=== PATIENT | female | born 1965 | race African-American/Black ===

== ENCOUNTER 2019-05-21 14:57 | Inpatient (IN) | payer OTHER ==
--- NOTE | 2019-05-21 15:04 | PDOC ---
Rapid Medical Evaluation Chief Complaint: Chest Pain Time Seen by Provider: 05/21/19 14:59 Medical Evaluation: Allergies Allergy/AdvReac Type Severity Reaction Status Date / Time haloperidol [From Haldol] Allergy Verified 07/15/14 15:00 haloperidol lactate Allergy Verified 07/15/14 15:00 [From Haldol] shellfish derived Allergy Verified 07/15/14 15:00 05/21/19 15:00 Pt c/o: prod cough x 4 months, post tussis vomiting, arthalgia, headache, UT last month, no stents, hx copd, dyslipidemia Pt on brief exam: vss, lcta, speaking full sentences, no vomiting Pt ordered for: ekg, labs, cxr Pt to proceed to the ED Discharge Disposition - Diagnosis Cough, Acute respiratory failure, Asthma - Discharge Dispostion Condition at time of disposition: Stable - Referrals - Patient Instructions - Post Discharge Activity
--- NOTE | 2019-05-21 15:24 | PDOC ---
History of Present Illness - General Chief Complaint: Chest Pain Stated Complaint: CHEST PAIN, ABD PAIN, COUGH, VOMITING, BACK PAIN Time Seen by Provider: 05/21/19 14:59 Past History - Past Medical History Allergies/Adverse Reactions: Allergies Allergy/AdvReac Type Severity Reaction Status Date / Time fluoxetine [From Prozac] Allergy Verified 05/22/19 04:46 haloperidol [From Haldol] Allergy Verified 05/21/19 15:03 haloperidol lactate Allergy Verified 05/21/19 15:03 [From Haldol] sertraline [From Zoloft] Allergy Verified 05/22/19 04:46 shellfish derived Allergy Verified 05/21/19 15:03 Home Medications: Ambulatory Orders Albuterol 2.5/Ipratropium 0.5 1 neb PO QID 05/22/19 Amlodipine Besylate [Norvasc -] 10 mg PO DAILY 05/22/19 Aspirin [Aspirin EC] 81 mg PO DAILY 05/22/19 Atorvastatin Ca [Lipitor] 80 mg PO DAILY 05/22/19 Hydrochlorothiazide 25 mg PO DAILY 05/22/19 Lisinopril 5 mg PO DAILY 05/22/19 COPD: Yes Diabetes: Yes (BORDER LINE) HTN: Yes Psychiatric Problems: Yes (DEPRSSION,BIPOLAR) - Psycho Social/Smoking Cessation Hx Smoking History: Former smoker Have you smoked in the past 12 months: No Number of Cigarettes Smoked Daily: 10 If you are a former smoker, when did you quit?: 01/2019 Information on smoking cessation initiated: Yes 'Breaking Loose' booklet given: 07/15/14 Hx Alcohol Use: No Drug/Substance Use Hx: No Substance Use Type: None *Physical Exam - Vital Signs Last Vital Signs Temp Pulse Resp BP Pulse Ox 97.4 F L 83 19 99/60 96 05/21/19 14:59 05/21/19 14:59 05/21/19 14:59 05/21/19 14:59 05/21/19 14:59 05/21/19 16:00 PCP: Dr. Jv Villalpando but would like to establish care at [facility] 53 y/o female PMH HTN, HLD, asthma, COPD, chronic bronchitis, bipolar depression (no longer requiring tx), and s/p [place] 07 Apr 2019 (Seen at [facility] and transferred to [facility]) c/o SOB and CP. Symptoms started 4 months ago. She came in today because her SOB acutely worsened and she is now vomiting (post-tussive). Today she had x6 episodes of emesis, food containing, non-bloody, partly bilious. Her GB is intact; appendix intact. She denies fever, nausea, diarrhea. She has been constipated for 4 months; NL BM every other day and last was yesterday NL. She experienced a non-productive cough. Her had similar symptoms. She did recieve flu shot this year. Assoc. abdominal pain with cough. She recently quit smoking (4 months ago) and had a 28 y h/o 2 ppd. She has been using her rescue inhaler 4-6 times a day over the last 4 months. She endorses night time awakenings and cough. CP is located diffusely across the chest, pressure in character, non-radiating, made worse with cough, reproducible, 7/10. HEART score 6: highly suspicious history, normal EKG/old infarct, 53 y/o, risk factors (HTN, HLD, obesity, former smoker, prior [place]), trop NEG x1 [id number]. LMP 2 years ago. Attempting new diet and lost 5 lbs in last month. Describes night sweats; currently experiencing menopause. She describes urinary stress incontinence with this cough over last 4 months. She denies fever, nausea, diarrhea, recent travel. Fam hx no reported fam hx Surg hx: 1998 Soc hx: Smoking as above, never drugs, never etoh, low na/low fat diet, walks for exercise. 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 Live in home with , son, son's and grandchild REVIEW OF SYSTEMS CONSTITUTIONAL: Absent: fever, chills, diaphoresis, generalized weakness, malaise, loss of appetite, weight change HEENT: Absent: rhinorrhea, nasal congestion, throat pain, throat swelling, difficulty swallowing, mouth swelling, ear pain, eye pain, visual changes CARDIOVASCULAR: Absent: chest pain, syncope, palpitations, irregular heart rate, lightheadedness , peripheral edema RESPIRATORY: Absent: cough, shortness of breath, dyspnea with exertion, orthopnea, wheezing, stridor, hemoptysis GASTROINTESTINAL: Absent: abdominal pain, abdominal distension, nausea, vomiting, diarrhea, constipation, melena, hematochezia GENITOURINARY: Absent: dysuria, frequency, urgency, hesitancy, hematuria, flank pain, genital pain MUSCULOSKELETAL: Absent: myalgia, arthralgia, joint swelling, back pain, neck pain SKIN: Absent:rash, itching, pallor HEMATOLOGIC/IMMUNOLOGIC: Absent: easy bleeding, easy bruising, lymphadenopathy, frequent infections ENDOCRINE: Absent: unexplained weight gain, unexplained weight loss, heat intolerance, cold intolerance NEUROLOGIC: Absent: headache, focal weakness or paresthesias, dizziness, unsteady gait, seizure, mental status changes, bladder or bowel incontinence PSYCHIATRIC: Absent: anxiety, depression, suicidal or homicidal ideation, hallucinations. GENERAL: AOx3, in mild distress HEAD: NCAT EYES: EVELYN, EOMI, conjunctiva ?chronic discoloration ENT: Ears normal, nares patent, oropharynx clear without exudates. Moist mucous membranes. NECK: Normal range of motion, supple without lymphadenopathy, JVD, or masses. LUNGS: End expiratory wheezes in all lung casey ant+post. No accessory muscle use. HEART: RRR s1 s2 ABDOMEN: Obese, soft, BS present in all 4 quadrants, non-distended, no JVD, MUSCULOSKELETAL: No bony deformities or tenderness. No CVA tenderness. UPPER EXTREMITIES: 2+ pulses, warm, well-perfused. No cyanosis. No clubbing. No peripheral edema. LOWER EXTREMITIES: 2+ pulses, warm, well-perfused. No calf tenderness. No peripheral edema. NEUROLOGICAL: No focal deficits. Cranial nerves II-XII intact. Normal speech. Gait not appreciated. PSYCHIATRIC: Cooperative. Good eye contact. Appropriate mood and affect. SKIN: Dry, normal turgor, no rashes or lesions noted, normal capillary refill. # Acute respiratory failure 2/2 asthma exacerbation VS CHF exacerbation # R/o ACS - CBC, CMP, UA, U cx, CXR, EKG - Duonebs, albuterol PRN, 125 mg IV solumedrol - Lasix 20 mg IVP once Plan to admit given cardiac hx and respiratory status 05/21/19 16:52 Labs - WBC 11.4 - Eosinopilia. Pt reports plenty of roaches in home and prince allergy. CXR no acute pathology 05/21/19 17:[address] Gt Lucas for admission to [facility] Heart Score/ECG Review - History History: Highly suspicious - Electrocardiogram EKG: Non specific repolarization disturbance - Age Age: 45-65 - Risk Factors Risk Factors Heart Score: Yes Hx Hypercholesterolemia, Yes Hx Hypertension, Yes Smoking History, Yes Hx Obesity Based on the list above the patient has:: >/=3 risk factors or Hx atherosclerotic disease - Troponin Troponin: </= normal limit - Score Heart Score - Total: 6 ED Treatment Course - LABORATORY CBC & Chemistry Diagram: 05/24/19 07:19 05/24/19 07:19 Discharge - Discharge Information Problems reviewed: Yes Clinical Impression/Diagnosis: Cough Acute respiratory failure Qualifiers: Respiratory failure complication: unspecified whether with hypoxia or hypercapnia Qualified Code(s): J96.00 - Acute respiratory failure, unspecified whether with hypoxia or hypercapnia Asthma Qualifiers: Asthma severity: severe Asthma persistence: unspecified Asthma complication type: with acute exacerbation Qualified Code(s): J45.901 - Unspecified asthma with (acute) exacerbation Condition: Stable - Admission Yes - Follow up/Referral - Patient Discharge Instructions - Post Discharge Activity
[2019-05-21 15:46] LABS: BASO % 0.9 % (0-2.0); EOS % 22.1 % (0-4.5); HEMATOCRIT 37.5 % (32.4-45.2); LYMPH % 22.4 % (8-40); MCHC 32.2 g/dl (32.0-36.0); MEAN CELL VOLUME 80.7 fl (80-96); MEAN PLT VOLUME 7.1 fl (7.5-11.1); MONO % 6.3 % (3.8-10.2); NEUT % 48.3 % (42.8-82.8); PLATELET COUNT 402 K/MM3 (134-434); RBC 4.64 M/mm3 (3.60-5.2); RDW 15.7 % (11.6-15.6); WHITE BLOOD COUNT 11.4 K/mm3 (4.0-10.0)
[2019-05-21] MEDS ORDERED: ALBUTEROL SO4 2.5/IPRATROPIUM 0.5 INH SOL 3 ML VIAL.NEB. NEB ONE ×2 (15:59→16:13)
[2019-05-21 16:13] LABS: ALK PHOS 72 U/L (45-117); ANION GAP 6 MMOL/L (8-16); BILIRUBIN,TOTAL 0.3 mg/dL (0.2-1); BLOOD UREA NITROGEN 32.6 mg/dL (7-18); CALCIUM 9.7 mg/dL (8.5-10.1); CHLORIDE 105 mmol/L (98-107); CO2 29 mmol/L (21-32); CREATININE 1.5 mg/dL (0.55-1.3); GLUCOSE,RANDOM 104 mg/dL (74-106); POTASSIUM 4.2 mmol/L (3.5-5.1); SGOT/AST 20 U/L (15-37); SGPT/ALT 31 U/L (13-61); SODIUM 140 mmol/L (136-145); TOT PROT 6.6 g/dl (6.4-8.2)
[2019-05-21] MEDS ORDERED: methylPREDNISolone NA SUCC 125 MG/2 ML VIAL IVPUSH ONE (16:16)
[2019-05-21] MEDS ORDERED: ALBUTEROL SO4 HFA INHALER IH PRN (16:16)
[2019-05-21] MEDS: ALBUTEROL SO4 2.5/IPRATROPIUM 0.5 INH SOL 3 ML VIAL.NEB. NEB SCH ×4 (16:17→17:05)
--- NOTE | 2019-05-21 16:18 | PDOC ---
Attending Attestation - Resident Resident Name: Eulogio Jerry - ED Attending Attestation I have performed the following: I have examined & evaluated the patient, The case was reviewed & discussed with the resident, I agree w/resident's findings & plan - HPI HPI: 05/21/19 16:13 53-year-old female history of asthma, hypertension, AR last month status post cath at [facility] without stent intervention presents now with progressive cough for several months, worsening over the last few weeks and associated with chest pain. Positive orthopnea, no improvement despite 2 courses of prednisone. Lost to follow-up with cardiology, presents for evaluation. - Physicial Exam PE: 05/21/19 16:16 Vitals as noted, afebrile Obese female seated in stretcher speaking comfortably in no acute respiratory distress no JVD Heart is regular, but with frequent cough Lungs with slight crackles at both bases and expiratory wheezing to the mid lung field bilaterally Abdomen benign Trace pretibial edema bilaterally - Medical Decision Making 05/21/19 16:16 53-year-old female with history of asthma and recent AR presents with progressive shortness of breath and chest pain over the last few months, worsening over the last few weeks. Has been treated empirically for asthma exacerbation without relief, presentation could be consistent with asthma versus CHF. Labs, EKG, chest x-ray Nebulizers, IV diuresis We will need admission for echo and cardiac work-up Heart Score/ECG Review #1 ECG reviewed & interpreted by me at: 15:15 General ECG Interpretation: Sinus Rhythm, Normal Rate (80), Normal Intervals ( qtc 403), No acute ischemic changes
[2019-05-21] MEDS ORDERED: FUROSEMIDE 40 MG/4 ML INJECTABLE VIAL IVPUSH ONE (16:38)
[2019-05-21] MEDS ORDERED: FUROSEMIDE 40 MG/4 ML INJECTABLE VIAL ONE (17:24)
[2019-05-21] MEDS ORDERED: methylPREDNISolone NA SUCC 125 MG/2 ML VIAL ONE (17:24)
[2019-05-21 19:24] LABS: ARTERIAL BLD GAS O2 SATURATION 90.8 % (95-98); ARTERIAL BLOOD GAS BASE EXCESS 1.7 meq/l (-2-2); ARTERIAL BLOOD GAS PCO2 46.9 mmHg (35-45); ARTERIAL BLOOD GAS PO2 64.6 mmHg (80-100); ARTERIAL BLOOD GAS pH 7.38 (7.35-7.45)
[2019-05-21 19:25] LABS: ALLENS TEST POSITIVE
[2019-05-21] MEDS ORDERED: SODIUM CHLORIDE 0.9% 500 ML INFUS.BAG IV ONE (23:05)
--- NOTE | 2019-05-21 23:19 | HP ---
CHIEF COMPLAINT: SOB PCP: Dr Hernandez HISTORY OF PRESENT ILLNESS: 53 F h/o HTN, HLD, obesity, eczema, asthma, former smoker, former Etoh, ? bipolar disorder, presents with SOB on exertion a/w chest tightness and wheezing for the past 1-2 days. Patient endorses usually having her asthma "act up", until over the past few days started feeling worsening squeezing sensation in her chest a/w COVARRUBIAS. Denies sick contact, endorses having a cat at home was told in the past to get rid of her pet she never listened. Never intubated for asthma but gets frequent flare ups. Denies overt chest pain rather describes chest tightness and squeezing sensation, denies LOC/abdominal pain/vision changes. Endorses some episodes of vomiting after excessively coughing. ER course was notable for: (1) Duonebs, steroids (2) Trops/EKG neg. (3) Recent Travel: denies PAST MEDICAL HISTORY: as above PAST SURGICAL HISTORY: denies Social History: former Smoking: former (4 months ago) Alcohol: former (years ago) Drugs: denies Allergies haloperidol [From Haldol] Allergy (Verified 05/21/19 15:03) haloperidol lactate [From Haldol] Allergy (Verified 05/21/19 15:03) shellfish derived Allergy (Verified 05/21/19 15:03) HOME MEDICATIONS: Home Medications Medication Instructions Recorded NK [No Known Home Medication] 07/15/14 PHYSICAL EXAMINATION Vital Signs - 24 hr 05/21/19 14:59 Temperature 97.4 F L Pulse Rate 83 Respiratory 19 Rate Blood Pressure 99/60 O2 Sat by Pulse 96 Oximetry (%) GENERAL: Awake, alert, and fully oriented, in no acute distress. speaking in full sentences HEAD: Normal with no signs of trauma. EYES: Pupils equal, round and reactive to light, extraocular movements intact, sclera anicteric, conjunctiva clear. No lid lag. EARS, NOSE, THROAT: Ears normal, nares patent, oropharynx clear without exudates. Moist mucous membranes. NECK: Normal range of motion, supple without lymphadenopathy, JVD, or masses. LUNGS: scattered wheezes b/l, without signs of accessory M use HEART: Regular rate and rhythm, normal S1 and S2 without murmur, rub or gallop. ABDOMEN: Soft, nontender, obese, normoactive bowel sounds, no guarding, no rebound, no masses. No hepatomegaly or splenomegaly. MUSCULOSKELETAL: Normal range of motion at all joints. No bony deformities or tenderness. No CVA tenderness. UPPER EXTREMITIES: 2+ pulses, warm, well-perfused. No cyanosis. No clubbing. No peripheral edema. LOWER EXTREMITIES: 2+ pulses, warm, well-perfused. No calf tenderness. No peripheral edema. NEUROLOGICAL: Cranial nerves II-XII intact. Normal speech. Normal gait. PSYCHIATRIC: Cooperative. Good eye contact. Appropriate mood and affect. SKIN: Warm, dry, normal turgor, no rashes or lesions noted, normal capillary refill. Laboratory Results - last 24 hr 05/21/19 05/21/19 05/21/19 15:18 15:18 18:44 WBC 11.4 H RBC 4.64 Hgb 12.0 Hct 37.5 MCV 80.7 MCH 26.0 MCHC 32.2 RDW 15.7 H Plt Count 402 MPV 7.1 L Absolute Neuts (auto) 5.5 Neutrophils % 48.3 Neutrophils % (Manual) 35.9 L Band Neutrophils % 0.0 Lymphocytes % 22.4 Lymphocytes % (Manual) 51.3 H Monocytes % 6.3 Monocytes % (Manual) 2 L Eosinophils % 22.1 H* Eosinophils % (Manual) 9.4 H Basophils % 0.9 Basophils % (Manual) 0.8 Myelocytes % (Man) 0 Promyelocytes % (Man) 0 Blast Cells % (Manual) 0 Nucleated RBC % 0 Metamyelocytes 1 Anticoagulation Therapy Puncture Site ABG pH ABG pCO2 at Pt Temp ABG pO2 at Pt Temp ABG HCO3 ABG O2 Sat (Measured) ABG O2 Content ABG Base Excess David Test Carboxyhemoglobin Methemoglobin O2 Delivery Device Oxygen Flow Rate Vent Mode Vent Rate Mechanical Rate Pressure Support Vent Sodium 140 Potassium 4.2 Chloride 105 Carbon Dioxide 29 Anion Gap 6 L BUN 32.6 H Creatinine 1.5 H Est GFR (CKD-EPI)AfAm 45.62 Est GFR (CKD-EPI)NonAf 39.36 Random Glucose 104 Calcium 9.7 Total Bilirubin 0.3 AST 20 ALT 31 Alkaline Phosphatase 72 Creatine Kinase 85 Troponin I < 0.02 < 0.02 Total Protein 6.6 Albumin 3.0 L 05/21/19 19:01 WBC RBC Hgb Hct MCV MCH MCHC RDW Plt Count MPV Absolute Neuts (auto) Neutrophils % Neutrophils % (Manual) Band Neutrophils % Lymphocytes % Lymphocytes % (Manual) Monocytes % Monocytes % (Manual) Eosinophils % Eosinophils % (Manual) Basophils % Basophils % (Manual) Myelocytes % (Man) Promyelocytes % (Man) Blast Cells % (Manual) Nucleated RBC % Metamyelocytes Anticoagulation Therapy No Result Required. Puncture Site Right radial ABG pH 7.38 ABG pCO2 at Pt Temp 46.9 H ABG pO2 at Pt Temp 64.6 L ABG HCO3 26.9 ABG O2 Sat (Measured) 90.8 L ABG O2 Content 16.0 ABG Base Excess 1.7 David Test Positive Carboxyhemoglobin 1.0 Methemoglobin 1.2 O2 Delivery Device No Result Required. Oxygen Flow Rate No Result Required. Vent Mode No Result Required. Vent Rate No Result Required. Mechanical Rate No Result Required. Pressure Support Vent No Result Required. Sodium Potassium Chloride Carbon Dioxide Anion Gap BUN Creatinine Est GFR (CKD-EPI)AfAm Est GFR (CKD-EPI)NonAf Random Glucose Calcium Total Bilirubin AST ALT Alkaline Phosphatase Creatine Kinase Troponin I Total Protein Albumin ASSESSMENT/PLAN: 53 F h/o eczemia, asthma, obesity, HTN, HLD, bipolar disorder presents with COVARRUBIAS , wheezing and chest tightness, pt. admitted for ABISAI, no clinical signs for ACS. SOB 2/2 ABISAI, with hypereosinophilia Singulair, duonebs, IV steroids, Claritin (for itching) Will need repeat of PFTs as outpatient Trops negx2, EKG no signs of acute ischemia, obtain Echo Pulmonary consult: Dr Saab HTN hold BP meds in view of low BP HLD send lipid panel hold statin in view of vomiting Obesity counseled on diet/exercise and weight loss Bipolar disorder not in acute exacerbation no SI/HI/AH/VH, stable mood Med-surg DVT ppx: Lovenox SC Visit type - Emergency Visit Emergency Visit: Yes ED Registration Date: 05/21/19 Care time: The patient presented to the Emergency Department on the above date and was hospitalized for further evaluation of their emergent condition. - New Patient This patient is new to me today: Yes Date on this admission: 05/21/19 - Critical Care Critical Care patient: No
[2019-05-21] MEDS ORDERED: methylPREDNISolone NA SUCC 40 MG/1 ML VIAL ONE (23:26)
[2019-05-21] MEDS: methylPREDNISolone NA SUCC 40 MG/1 ML VIAL IVPUSH SCH (23:39)
[2019-05-21] MEDS: ALBUTEROL SO4 2.5/IPRATROPIUM 0.5 INH SOL 3 ML VIAL.NEB. NEB PRN (23:46)
[2019-05-22 00:14] LABS: COCAINE, UR NEGATIVE ng/ml (CUTOFF=300); METHADONE, UR NEGATIVE ng/ml (CUTOFF=300); OPIATES, URI NEGATIVE ng/ml (CUTOFF=300); PHENCYCLIDINE,URINE NEGATIVE ng/ml (CUTOFF=25); URINE AMPHETAMINES NEGATIVE ng/ml (CUTOFF=500); URINE BARBITURATES NEGATIVE ng/ml (CUTOFF=200); URINE BENZODIAZEPINES NEGATIVE ng/ml (CUTOFF=200)
[2019-05-22] MEDS: methylPREDNISolone NA SUCC 40 MG/1 ML VIAL IVPUSH SCH ×4 (03:52→22:44)
[2019-05-22] MEDS ORDERED: PNEUMOC 13-VAL CONJ-DIP CRM/PF 0.5 ML DISP.SYRIN IM ONE (04:29)
[2019-05-22] MEDS: ALBUTEROL SO4 2.5/IPRATROPIUM 0.5 INH SOL 3 ML VIAL.NEB. NEB PRN (05:48)
[2019-05-22 08:15] LABS: BASO % 0.3 % (0-2.0); EOS % 0.1 % (0-4.5); HEMOGLOBIN 11.8 GM/dL (10.7-15.3); MCH 26.2 pg (25.7-33.7); MCHC 32.7 g/dl (32.0-36.0); MEAN CELL VOLUME 80.1 fl (80-96); MEAN PLT VOLUME 7.5 fl (7.5-11.1); MONO % 1.3 % (3.8-10.2); NEUT % 90.3 % (42.8-82.8); PLATELET COUNT 360 K/MM3 (134-434); RDW 16.1 % (11.6-15.6); WHITE BLOOD COUNT 7.8 K/mm3 (4.0-10.0)
[2019-05-22 08:36] LABS: CHOLESTEROL 164 mg/dL (50-200); HDL CHOLESTEROL 62 mg/dL (40-60); LDL CHOLESTEROL (ONLY SJRH) 94 mg/dL (5-100); TRIGLYCERIDES 52 mg/dL (0-150)
[2019-05-22 08:47] LABS: BILIRUBIN,TOTAL 0.4 mg/dL (0.2-1); BLOOD UREA NITROGEN 38.2 mg/dL (7-18); CALCIUM 9.3 mg/dL (8.5-10.1); CREATININE 1.6 mg/dL (0.55-1.3); POTASSIUM 4.9 mmol/L (3.5-5.1); TOT PROT 6.5 g/dl (6.4-8.2)
[2019-05-22] MEDS: LORATADINE 10 MG TABLET PO SCH (09:33)
[2019-05-22] MEDS: ENOXAPARIN NA (PORCINE) 40 MG/0.4 ML DISP.SYRIN SQ SCH (09:33)
[2019-05-22] MEDS ORDERED: PNEUMOCOCCAL 23 VACCINE 0.5 ML VIAL IM ONE (10:00)
--- NOTE | 2019-05-22 12:52 | ECHO ---
Version: 1 Name: REGINO VAZ Exam: Adult Echocardiogram Study Date: 05/22/2019, 8:50 AM Age: 53 Years MMode/2D Measurements & Calculations IVSd: 0.92 cm LVIDs: 2.45 cm LVIDd: 3.9 cm LVPWd: 1.21 cm ACS: 2.01 cm Ao root diam: 2.6 cm LVOT diam: 1.92 cm LA dimension: 3.2 cm Doppler Measurements & Calculations MV E max matt: 105.1 cm/sec Med E/e': 12.3 MV A max matt: 107.6 cm/sec Med Peak E' Matt: 8.6 cm/sec MV E/A: 0.98 Lat E/e': 9.7 Lat Peak E' Matt: 10.8 cm/sec Ao max P.6 mmHg ERASTO(I,D): 2.5 cm Ao mean P.6 mmHg LV V1 mean: 91.8 cm/sec Ao V2 max: 177.8 cm/sec LV V1 mean P.9 mmHg Procedure A limited two-dimensional transthoracic echocardiogram was performed (2D). Left Ventricle The left ventricle is normal in size. The left ventricle is hyperdynamic. Left Ventricular Filling p attern is normal for age. Right Ventricle The right ventricle is normal in size and function. Atria Normal left and right atrial size and function. Mitral Valve The mitral valve is normal in structure and function. There is no mitral valve stenosis. Tricuspid Valve The tricuspid valve is normal in structure and function. There was insufficient TR detected to calcu late RV systolic pressure. Aortic Valve The aortic valve is normal in structure and function. Pulmonic Valve The pulmonic valve is normal in structure and function. Great Vessels The aortic root is normal size. Pericardium/Pleura There is no pericardial effusion. Summary Statements A limited two-dimensional transthoracic echocardiogram was performed (2D). The left ventricle is hyperdynamic. Left Ventricular Filling pattern is normal for age. The right ventricle is normal in size and function. Terrance Call 05/22/2019, 12:52 PM Ordering Physician: Gulshan Escobar Performed By: Regine Garcia
--- NOTE | 2019-05-22 13:12 | PN ---
Progress Note (short form) - Note Progress Note: PULMONARY CONSULTATION DICTATED 05/22/19 IMP DYSPNEA ACUTE ASTHMA EXACERBATION COUGH ASHD S/P AK HTN HLD CALI TOBACCO ABUSE EOSINOPHILIA JUAN ON CPAP PLAN IV STEROIDS INHALED BRONCHODILATORS O2 PEAK FLOW MONITOR CBC,EOSINOPHIL CT,LYTES,RENAL FUNCTION SERUM IGE LEVEL OUTPATIENT WHEN OFF STEROIDS OUTPATIENT PFTS CPAP AT NIGHT CHEST CT SMOKING CESSATION COUNSELED DR ASHRAF Problem List - Problems (1) Eosinophil count raised Code(s): D72.1 - EOSINOPHILIA (2) Asthma Code(s): J45.909 - UNSPECIFIED ASTHMA, UNCOMPLICATED Qualifiers: Asthma severity: severe Asthma persistence: unspecified Asthma complication type: with acute exacerbation Qualified Code(s): J45.901 - Unspecified asthma with (acute) exacerbation (3) Cough Code(s): R05 - COUGH (4) ASHD (arteriosclerotic heart disease) Code(s): I25.10 - ATHSCL HEART DISEASE OF [place] CORONARY ARTERY W/O ANG PCTRS (5) HTN (hypertension) Code(s): I10 - ESSENTIAL (PRIMARY) HYPERTENSION (6) Asthma exacerbation Code(s): J45.901 - UNSPECIFIED ASTHMA WITH (ACUTE) EXACERBATION (7) Sleep apnea Code(s): G47.30 - SLEEP APNEA, UNSPECIFIED
[2019-05-22 13:30] LABS: PLATELET ESTIMATE ADEQUATE
--- NOTE | 2019-05-22 14:06 | CONS ---
PULMONARY CONSULTATION DATE OF CONSULTATION: 05/22/2019 REFERRING PHYSICIAN: Eron Escobar MD HISTORY OF PRESENT ILLNESS: Patient is a 53-year-old, female with past medical history of obesity; obstructive sleep apnea, on CPAP; hypertension; hyperlipidemia; long-standing history of tobacco use of approximately 2 packs per day, since age 21, stopped about 1 month ago; ASHD, status post MS one month ago, hospitalized at [facility], no stent placed; former history of EtOH; asthma for approximately 4 years; admitted to [facility] with complaint of increasing chest congestion, shortness of breath, bronchospasm, and orthopnea. Patient states she was well, until a month ago, when she started developing cough productive of clear sputum. Denied any chest pain. She has been treated intermittently with prednisone and bronchodilator, which initially offered some improvement and then her symptoms recur. The past couple days, she started developing increasing respiratory distress; at which time, she presented to the ER. In the ER, she was started on inhaled bronchodilators and steroids. Was transferred up to medical floor for further management. Of note is she was also found to have elevated eosinophil count of 22 on initial CBC. States that she has a history of multiple allergies to and HAY FEVER. There is no history of respiratory failure in the past or ventilatory support. She denies any history of DVT or PE in the past. There is no history of recent travel. She denies any hemoptysis, chest pains or palpitations. She claims to have a cough productive of clear sputum. PAST MEDICAL HISTORY: Again includes asthma for approximately 4 years; obstructive sleep apnea; hypertension; hyperlipidemia; ASHD, status post MS one month ago. 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 History of tobacco of 2 packs per day since age 21; quit 1 month ago. REVIEW OF SYSTEMS: Positive shortness of breath. Positive orthopnea. No PND. Positive cough. Positive bronchospasm. No chest pain. No palpitations. No lower extremity edema. CURRENT MEDICATIONS: Include Solu-Medrol of 60 q.6, Lovenox, albuterol, DuoNeb, Singulair, and Claritin. PHYSICAL EXAMINATION: General: Patient is an obese female, awake, alert, in no acute distress. Vital Signs: She is afebrile, her blood pressure is 138/86, respiratory rate is 18, O2 saturation is 91% on room air. HEENT: Exam is normocephalic, atraumatic. Neck: Supple. Heart: reg,S1 and S2. Chest: Scattered bilateral wheezes. Abdomen: Soft. Bowel sounds are positive. Extremities: No cyanosis or edema. Echo showed normal left ventricular function, right ventricle normal in size and function. LABORATORIES: WBC is 11.4, hemoglobin 12, hematocrit 37.5 with a platelet count of 402,000. Repeat today WBC is 7.8, hemoglobin 11.8, hematocrit 36.0, platelet count of 360. Eosinophils today are 0.1; on May 21.1. Chemistries: BUN 38, creatinine 1.6. Chest x-ray: No infiltrates and no effusions. IMPRESSION: 1. Dyspnea, secondary to acute asthma and chronic obstructive pulmonary disease exacerbation. 2. Cough, secondary to above. 3. Atherosclerotic heart disease. Status post myocardial infarction one month ago. 4. Hypertension. 5. Hyperlipidemia. 6. Likely acute kidney injury. 7. History of tobacco use. 8. Eosinophilia. 9. Obstructive sleep apnea. On CPAP. PLAN: IV steroids. Inhaled bronchodilators. Supplemental O2. Monitor peak flow. Monitor CBC, eosinophil count. Monitor electrolytes, renal function. Obtain serum IgE level, as well as followup eosinophil level as an outpatient when off steroids. Outpatient PFTs. CPAP at night. Also, chest CT, due to long-standing history of tobacco use. ERON ASHRAF M.D. [id number] MTDD
[2019-05-22] MEDS ORDERED: PANTOPRAZOLE 40 MG TABLET PO ONE (14:55)
--- NOTE | 2019-05-22 15:01 | PN ---
Progress Note, Physician Chief Complaint: sob and coughing History of Present Illness: 53 year old obese female with PMH HTN, HLD, obesity, eczema, asthma, ? bipolar disorder presents to the ED with sob/coughing. she is evalauted by pulmonology, nephrology. - Current Medication List Current Medications: Active Medications Albuterol Sulfate (Ventolin Hfa Inhaler -) 2 puff IH Q6H PRN PRN Reason: SHORT OF BREATH/WHEEZING Albuterol/Ipratropium (Duoneb -) 1 amp NEB RQ4H [facility] Amlodipine Besylate (Norvasc -) 10 mg PO DAILY [facility] Aspirin (Ecotrin -) 81 mg PO DAILY [facility] Atorvastatin Calcium (Lipitor -) 80 mg PO DAILY [facility] Enoxaparin Sodium (Lovenox -) 40 mg SQ DAILY [facility] Last Admin: 05/22/19 09:33 Dose: 40 mg Hydrochlorothiazide (Hctz -) 25 mg PO DAILY [facility] Lisinopril (Prinivil) 5 mg PO DAILY [facility] Loratadine (Claritin -) 10 mg PO DAILY [facility] Last Admin: 05/22/19 09:33 Dose: 10 mg Methylprednisolone Sodium Succinate (Solu-Medrol -) 60 mg IVPUSH Q6H-IV [facility] Last Admin: 05/22/19 09:33 Dose: 60 mg Montelukast Sodium (Singulair -) 10 mg PO HS [facility] Pantoprazole Sodium (Protonix -) 40 mg PO DAILY [facility] Pantoprazole Sodium (Protonix -) 40 mg PO ONCE ONE Stop: 05/22/19 14:56 - Objective Vital Signs: Vital Signs Temperature 97.3 F L 05/22/19 14:02 Pulse Rate 109 H 05/22/19 14:02 Respiratory Rate 18 05/22/19 14:02 Blood Pressure 137/87 05/22/19 14:02 O2 Sat by Pulse Oximetry (%) 91 L 05/22/19 08:15 Constitutional: Yes: Well Nourished, No Distress HENT: Yes: Atraumatic, Normocephalic Neck: Yes: Supple Cardiovascular: Yes: Regular Rate and Rhythm Respiratory: Yes: Wheezes Gastrointestinal: Yes: Normal Bowel Sounds, Soft Musculoskeletal: Yes: WNL, Other (pleuritic pain from coughing) Extremities: Yes: WNL Neurological: Yes: Alert, Oriented Labs: CBC, BMP 05/22/19 06:45 05/22/19 06:45 Problem List - Problems (1) Asthma exacerbation Assessment/Plan: pulmonary following IV steroids add ppi neb tx Code(s): J45.901 - UNSPECIFIED ASTHMA WITH (ACUTE) EXACERBATION (2) Obesity (BMI 30-39.9) Assessment/Plan: 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 Code(s): E66.9 - OBESITY, UNSPECIFIED (3) HLD (hyperlipidemia) Assessment/Plan: total chol 162 continue atorvastatin Code(s): E78.5 - HYPERLIPIDEMIA, UNSPECIFIED (4) CALI (acute kidney injury) Assessment/Plan: monitor bun/creat nephro eval Code(s): N17.9 - ACUTE KIDNEY FAILURE, UNSPECIFIED (5) Acute respiratory failure Assessment/Plan: does not have home oxygen monitor sats maintain >92% Code(s): J96.00 - ACUTE RESPIRATORY FAILURE, UNSP W HYPOXIA OR HYPERCAPNIA Qualifiers: Respiratory failure complication: unspecified whether with hypoxia or hypercapnia Qualified Code(s): J96.00 - Acute respiratory failure, unspecified whether with hypoxia or hypercapnia (6) HTN (hypertension) Assessment/Plan: restart home meds Code(s): I10 - ESSENTIAL (PRIMARY) HYPERTENSION
[2019-05-22] MEDS: ALBUTEROL SO4 2.5/IPRATROPIUM 0.5 INH SOL 3 ML VIAL.NEB. NEB SCH ×2 (16:30→20:08)
--- NOTE | 2019-05-22 16:45 | EKG ---
Test Reason : Blood Pressure : / mmHG Vent. Rate : 080 BPM Atrial Rate : 080 BPM P-R Int : 160 ms QRS Dur : 076 ms QT Int : 350 ms P-R-T Axes : 040 005 009 degrees QTc Int : 403 ms POOR DATA QUALITY, INTERPRETATION MAY BE ADVERSELY AFFECTED NORMAL SINUS RHYTHM SEPTAL INFARCT , AGE UNDETERMINED ABNORMAL ECG Confirmed by MD GABBIE, TRINH ([id number]) on 05/22/2019 4:44:46 PM Referred By: Confirmed By:TRINH CARTWRIGHT MD
--- NOTE | 2019-05-22 17:44 | CONSULT ---
Consult Consult Specialty:: Nephrology Reason for Consultation:: CALI - History of Present Illness Chief Complaint: shortness of breath History of Present Illness: Pt is a 53 year old female with pmhx of htn, hld, obesity, eczema, asthma, former smoker and bipolar who presents to the ER with shortness of breath. 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 She denies dysuria, She says that she had man "kidney infections" as a child. She denies hematuria. She denies lower ext edema. She denies nsaid use. - History Source History Provided By: Patient - Past Medical History Cardio/Vascular: Yes: HTN Pulmonary: Yes: Asthma ...LMP: 05/22/19 ...: No Psych: Yes: Bipolar - Alcohol/Substance Use Hx Alcohol Use: No - Smoking History Smoking history: Former smoker Have you smoked in the past 12 months: No Aproximately how many cigarettes per day: 10 If you are a former smoker, when did you quit?: 01/2019 Home Medications - Allergies Allergies/Adverse Reactions: Allergies Allergy/AdvReac Type Severity Reaction Status Date / Time fluoxetine [From Prozac] Allergy Verified 05/22/19 04:46 haloperidol [From Haldol] Allergy Verified 05/21/19 15:03 haloperidol lactate Allergy Verified 05/21/19 15:03 [From Haldol] sertraline [From Zoloft] Allergy Verified 05/22/19 04:46 shellfish derived Allergy Verified 05/21/19 15:03 - Home Medications Home Medications: Ambulatory Orders Albuterol 2.5/Ipratropium 0.5 1 neb PO QID 05/22/19 Amlodipine Besylate [Norvasc -] 10 mg PO DAILY 05/22/19 Aspirin [Aspirin EC] 81 mg PO DAILY 05/22/19 Atorvastatin Ca [Lipitor] 80 mg PO DAILY 05/22/19 Hydrochlorothiazide 25 mg PO DAILY 05/22/19 Lisinopril 5 mg PO DAILY 05/22/19 Family Medical History Family History: Denies Review of Systems - Review of Systems Constitutional: reports: No Symptoms Eyes: reports: No Symptoms HENT: reports: No Symptoms Neck: reports: No Symptoms Cardiovascular: denies: Edema Respiratory: reports: Cough, SOB on Exertion, Wheezing Gastrointestinal: reports: No Symptoms Genitourinary: reports: No Symptoms Musculoskeletal: reports: No Symptoms Integumentary: reports: No Symptoms Neurological: reports: No Symptoms Endocrine: reports: No Symptoms Hematology/Lymphatic: reports: No Symptoms Psychiatric: reports: No Symptoms Physical Exam Vital Signs: Vital Signs Temperature 97.3 F L 05/22/19 14:02 Pulse Rate 109 H 05/22/19 14:02 Respiratory Rate 18 05/22/19 14:02 Blood Pressure 137/87 05/22/19 14:02 O2 Sat by Pulse Oximetry (%) 91 L 05/22/19 08:15 Constitutional: Yes: Calm Eyes: Yes: Conjunctiva Clear Cardiovascular: Yes: S1, S2 Respiratory: Yes: Wheezes Gastrointestinal: Yes: Soft, Abdomen, Obese Renal/: Yes: WNL Musculoskeletal: Yes: WNL Edema: LLE: Trace, RLE: Trace Neurological: Yes: Oriented Psychiatric: Yes: Oriented Labs: CBC, BMP 05/22/19 06:45 05/22/19 06:45 Laboratory Tests 05/21/19 05/21/19 05/22/19 15:18 15:18 06:45 WBC 11.4 H 7.8 Hgb 12.0 11.8 Plt Count 402 360 Creatinine 1.5 H 05/22/19 06:45 WBC Hgb Plt Count Creatinine 1.6 H Imaging - Results Cat Scan: Report Reviewed Problem List - Problems (1) CALI (acute kidney injury) Code(s): N17.9 - ACUTE KIDNEY FAILURE, UNSPECIFIED (2) Asthma Code(s): J45.909 - UNSPECIFIED ASTHMA, UNCOMPLICATED Qualifiers: Asthma severity: severe Asthma persistence: unspecified Asthma complication type: with acute exacerbation Qualified Code(s): J45.901 - Unspecified asthma with (acute) exacerbation Assessment/Plan Current Medications Generic Name Dose Route Start Last Admin Trade Name Freq PRN Reason Stop Dose Admin Albuterol Sulfate 2 puff 05/21/19 16:16 Ventolin Hfa Inhaler - IH Q6H PRN SHORT OF BREATH/WHEEZING Albuterol/Ipratropium 1 amp 05/22/19 15:00 05/22/19 16:30 Duoneb - NEB Not Given RQ4H [facility] Amlodipine Besylate 10 mg 05/23/19 10:00 Norvasc - PO DAILY [facility] Aspirin 81 mg 05/23/19 10:00 Ecotrin - PO DAILY [facility] Atorvastatin Calcium 80 mg 05/23/19 10:00 Lipitor - PO DAILY [facility] Enoxaparin Sodium 40 mg 05/22/19 10:00 05/22/19 09:33 Lovenox - SQ 40 mg DAILY [facility] Administration Hydrochlorothiazide 25 mg 05/23/19 10:00 Hctz - PO DAILY [facility] Lisinopril 5 mg 05/23/19 10:00 Prinivil PO DAILY [facility] Loratadine 10 mg 05/22/19 10:00 05/22/19 09:33 Claritin - PO 10 mg DAILY [facility] Administration Methylprednisolone Sodium Succinate 60 mg 05/21/19 23:00 05/22/19 15:41 Solu-Medrol - IVPUSH 60 mg Q6H-IV [facility] Administration Montelukast Sodium 10 mg 05/22/19 22:00 Singulair - PO HS [facility] Pantoprazole Sodium 40 mg 05/23/19 10:00 Protonix - PO DAILY [facility] Impression 1. CKD vs CALI 2. htn 3. DM 4. asthma 5. dyspnea 6. 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
[2019-05-22 20:27] LABS: EPI CELLS 1.7 /HPF (0-5/HPF); HYALINE CASTS 1 /lpf (0-8); URINE APPEARANCE CLEAR; URINE BACTERIA 71.1 /hpf (NEGATIVE); URINE BILIRUBIN NEGATIVE (NEGATIVE); URINE COLOR YELLOW; URINE GLUCOSE (UA) NEGATIVE (NEGATIVE); URINE KETONE NEGATIVE (NEGATIVE); URINE LEUK ESTERASE NEGATIVE (NEGATIVE); URINE NITRITE NEGATIVE (NEGATIVE); URINE PROTEIN 2+ (NEGATIVE); URINE RBC 2 /hpf (0-4); URINE UROBILINOGEN 0.2 mg/dL (0.2-1.0); URINE WBC 3 /hpf (0-5)
[2019-05-22] MEDS: MONTELUKAST NA 10 MG TABLET PO SCH (22:44)
[2019-05-23] MEDS: ALBUTEROL SO4 2.5/IPRATROPIUM 0.5 INH SOL 3 ML VIAL.NEB. NEB SCH ×7 (00:17→23:57)
[2019-05-23] MEDS: methylPREDNISolone NA SUCC 40 MG/1 ML VIAL IVPUSH SCH ×4 (03:49→21:08)
[2019-05-23 08:14] LABS: BASO % 0.2 % (0-2.0); EOS % 0.1 % (0-4.5); HEMATOCRIT 35.2 % (32.4-45.2); HEMOGLOBIN 11.4 GM/dL (10.7-15.3); LYMPH % 5.3 % (8-40); MCHC 32.3 g/dl (32.0-36.0); MEAN CELL VOLUME 80.5 fl (80-96); MEAN PLT VOLUME 7.6 fl (7.5-11.1); MONO % 4.1 % (3.8-10.2); NEUT % 90.3 % (42.8-82.8); PLATELET COUNT 372 K/MM3 (134-434); RBC 4.38 M/mm3 (3.60-5.2); WHITE BLOOD COUNT 15.3 K/mm3 (4.0-10.0)
[2019-05-23] MEDS: PANTOPRAZOLE 40 MG TABLET PO SCH (09:30)
[2019-05-23] MEDS: HYDROCHLOROTHIAZIDE 25 MG TABLET (FP) PO SCH (09:30)
[2019-05-23] MEDS: amLODIPine BESYLATE 10 MG TABLET (FP) PO SCH (09:31)
[2019-05-23] MEDS: LISINOPRIL 5 MG TABLET (FP) PO SCH (09:31)
[2019-05-23] MEDS: ATORVASTATIN CA 80 MG TABLET (FP) PO SCH (09:31)
[2019-05-23] MEDS: LORATADINE 10 MG TABLET PO SCH (09:31)
[2019-05-23] MEDS: ASPIRIN COATED 81 MG TABLET.EC PO SCH (09:32)
[2019-05-23] MEDS: ENOXAPARIN NA (PORCINE) 40 MG/0.4 ML DISP.SYRIN SQ SCH (09:33)
[2019-05-23 09:48] LABS: BILIRUBIN,TOTAL 0.2 mg/dL (0.2-1); BLOOD UREA NITROGEN 41.6 mg/dL (7-18); CALCIUM 9.3 mg/dL (8.5-10.1); CREATININE 1.6 mg/dL (0.55-1.3); POTASSIUM 4.6 mmol/L (3.5-5.1); TOT PROT 6.4 g/dl (6.4-8.2)
--- NOTE | 2019-05-23 12:30 | PN ---
Progress Note (short form) - Note Progress Note: PULMONARY Breathing about the same. Still with chest congestion, tightness, cough with clear sputum and wheezing. Vital Signs Period Temp Pulse Resp BP Sys/Delacruz Pulse Ox Last 24 Hr 97.3 F-98.8 F 63-109 18-18 110-137/59-87 93-95 Gen: mildly tachypneic with speaking Heart: RRR Lung: scattered rhonchi Abd: soft, nontender Ext: no edema CBC, BMP 05/23/19 07:12 05/23/19 07:12 Active Medications Albuterol Sulfate (Ventolin Hfa Inhaler -) 2 puff IH Q6H PRN PRN Reason: SHORT OF BREATH/WHEEZING Albuterol/Ipratropium (Duoneb -) 1 amp NEB RQ4H [facility] Last Admin: 05/23/19 11:47 Dose: 1 amp Amlodipine Besylate (Norvasc -) 10 mg PO DAILY [facility] Last Admin: 05/23/19 09:31 Dose: 10 mg Aspirin (Ecotrin -) 81 mg PO DAILY [facility] Last Admin: 05/23/19 09:32 Dose: 81 mg Atorvastatin Calcium (Lipitor -) 80 mg PO DAILY [facility] Last Admin: 05/23/19 09:31 Dose: 80 mg Enoxaparin Sodium (Lovenox -) 40 mg SQ DAILY [facility] Last Admin: 05/23/19 09:33 Dose: 40 mg Hydrochlorothiazide (Hctz -) 25 mg PO DAILY [facility] Last Admin: 05/23/19 09:30 Dose: 25 mg Lisinopril (Prinivil) 5 mg PO DAILY [facility] Last Admin: 05/23/19 09:31 Dose: 5 mg Loratadine (Claritin -) 10 mg PO DAILY [facility] Last Admin: 05/23/19 09:31 Dose: 10 mg Methylprednisolone Sodium Succinate (Solu-Medrol -) 60 mg IVPUSH Q6H-IV [facility] Last Admin: 05/23/19 09:33 Dose: 60 mg Montelukast Sodium (Singulair -) 10 mg PO HS [facility] Last Admin: 05/22/19 22:44 Dose: 10 mg Pantoprazole Sodium (Protonix -) 40 mg PO DAILY [facility] Last Admin: 05/23/19 09:30 Dose: 40 mg A/P Acute Asthma Exacerbation CAD Acute Kidney Injury Eosinophilia HTN Hyperlipidemia JUAN Smoker - continue medrol at current dose - inhaled bronchodilators standing and PRN - O2 to keep Spo2 >90% - singulair, symbicort - CPAP at night - outpt IgE, PFTs - smoking cessation - DVT prophylaxis
--- NOTE | 2019-05-23 13:51 | PN ---
Progress Note, Physician History of Present Illness: Pt seen and examined at bedside. She complains of wheezing. - Current Medication List Current Medications: Active Medications Albuterol Sulfate (Ventolin Hfa Inhaler -) 2 puff IH Q6H PRN PRN Reason: SHORT OF BREATH/WHEEZING Albuterol/Ipratropium (Duoneb -) 1 amp NEB RQ4H [facility] Last Admin: 05/23/19 11:47 Dose: 1 amp Amlodipine Besylate (Norvasc -) 10 mg PO DAILY [facility] Last Admin: 05/23/19 09:31 Dose: 10 mg Aspirin (Ecotrin -) 81 mg PO DAILY [facility] Last Admin: 05/23/19 09:32 Dose: 81 mg Atorvastatin Calcium (Lipitor -) 80 mg PO DAILY [facility] Last Admin: 05/23/19 09:31 Dose: 80 mg Budesonide/Formoterol Fumarate (Symbicort 160/4.5mcg -) 2 puff IH BID [facility] Enoxaparin Sodium (Lovenox -) 40 mg SQ DAILY [facility] Last Admin: 05/23/19 09:33 Dose: 40 mg Hydrochlorothiazide (Hctz -) 25 mg PO DAILY [facility] Last Admin: 05/23/19 09:30 Dose: 25 mg Lisinopril (Prinivil) 5 mg PO DAILY [facility] Last Admin: 05/23/19 09:31 Dose: 5 mg Loratadine (Claritin -) 10 mg PO DAILY [facility] Last Admin: 05/23/19 09:31 Dose: 10 mg Methylprednisolone Sodium Succinate (Solu-Medrol -) 60 mg IVPUSH Q6H-IV [facility] Last Admin: 05/23/19 09:33 Dose: 60 mg Montelukast Sodium (Singulair -) 10 mg PO HS [facility] Last Admin: 05/22/19 22:44 Dose: 10 mg Pantoprazole Sodium (Protonix -) 40 mg PO DAILY [facility] Last Admin: 05/23/19 09:30 Dose: 40 mg - Objective Vital Signs: Vital Signs Temperature 98.5 F 05/23/19 10:00 Pulse Rate 63 05/23/19 10:00 Respiratory Rate 18 05/23/19 10:00 Blood Pressure 114/72 05/23/19 10:00 O2 Sat by Pulse Oximetry (%) 93 L 05/23/19 09:00 Constitutional: Yes: Calm Eyes: Yes: Conjunctiva Clear HENT: Yes: Atraumatic Neck: Yes: Supple Cardiovascular: Yes: S1, S2 Respiratory: Yes: Wheezes Gastrointestinal: Yes: Soft Genitourinary: Yes: WNL Musculoskeletal: Yes: WNL Edema: No Neurological: Yes: Oriented Psychiatric: Yes: Oriented Labs: CBC, BMP 05/23/19 07:12 05/23/19 07:12 Problem List - Problems (1) CALI (acute kidney injury) Code(s): N17.9 - ACUTE KIDNEY FAILURE, UNSPECIFIED (2) Asthma Code(s): J45.909 - UNSPECIFIED ASTHMA, UNCOMPLICATED Qualifiers: Asthma severity: severe Asthma persistence: unspecified Asthma complication type: with acute exacerbation Qualified Code(s): J45.901 - Unspecified asthma with (acute) exacerbation Assessment/Plan Current Medications Generic Name Dose Route Start Last Admin Trade Name Freq PRN Reason Stop Dose Admin Albuterol Sulfate 2 puff 05/21/19 16:16 Ventolin Hfa Inhaler - IH Q6H PRN SHORT OF BREATH/WHEEZING Albuterol/Ipratropium 1 amp 05/22/19 15:00 05/23/19 11:47 Duoneb - NEB 1 amp RQ4H [facility] Administration Amlodipine Besylate 10 mg 05/23/19 10:00 05/23/19 09:31 Norvasc - PO 10 mg DAILY [facility] Administration Aspirin 81 mg 05/23/19 10:00 05/23/19 09:32 Ecotrin - PO 81 mg DAILY [facility] Administration Atorvastatin Calcium 80 mg 05/23/19 10:00 05/23/19 09:31 Lipitor - PO 80 mg DAILY [facility] Administration Budesonide/Formoterol Fumarate 2 puff 05/23/19 22:00 Symbicort 160/4.5mcg - IH BID [facility] Enoxaparin Sodium 40 mg 05/22/19 10:00 05/23/19 09:33 Lovenox - SQ 40 mg DAILY [facility] Administration Hydrochlorothiazide 25 mg 05/23/19 10:00 05/23/19 09:30 Hctz - PO 25 mg DAILY [facility] Administration Lisinopril 5 mg 05/23/19 10:00 05/23/19 09:31 Prinivil PO 5 mg DAILY [facility] Administration Loratadine 10 mg 05/22/19 10:00 05/23/19 09:31 Claritin - PO 10 mg DAILY [facility] Administration Methylprednisolone Sodium Succinate 60 mg 05/21/19 23:00 05/23/19 09:33 Solu-Medrol - IVPUSH 60 mg Q6H-IV [facility] Administration Montelukast Sodium 10 mg 05/22/19 22:00 05/22/19 22:44 Singulair - PO 10 mg HS [facility] Administration Pantoprazole Sodium 40 mg 05/23/19 10:00 05/23/19 09:30 Protonix - PO 40 mg DAILY [facility] Administration Impression 1. CKD vs CALI 2. htn 3. DM 4. asthma 5. dyspnea 6. bipolar Plan - ua reviewed, pt with blood and protein - will need outpt renal workup - reviewed renal ultrasound - waiting for outpt records - avoid nsaids - will follow
[2019-05-23 14:15] VITALS: BMI 36.8
--- NOTE | 2019-05-23 15:27 | PN ---
Progress Note, Physician Chief Complaint: sob and coughing History of Present Illness: 53 year old obese female with PMH HTN, HLD, obesity, eczema, asthma, ? bipolar disorder presents to the ED with sob/coughing. she is evalauted by pulmonology, nephrology. - Current Medication List Current Medications: Active Medications Albuterol Sulfate (Ventolin Hfa Inhaler -) 2 puff IH Q6H PRN PRN Reason: SHORT OF BREATH/WHEEZING Albuterol/Ipratropium (Duoneb -) 1 amp NEB RQ4H [facility] Last Admin: 05/23/19 11:47 Dose: 1 amp Amlodipine Besylate (Norvasc -) 10 mg PO DAILY [facility] Last Admin: 05/23/19 09:31 Dose: 10 mg Aspirin (Ecotrin -) 81 mg PO DAILY [facility] Last Admin: 05/23/19 09:32 Dose: 81 mg Atorvastatin Calcium (Lipitor -) 80 mg PO DAILY [facility] Last Admin: 05/23/19 09:31 Dose: 80 mg Budesonide/Formoterol Fumarate (Symbicort 160/4.5mcg -) 2 puff IH BID [facility] Enoxaparin Sodium (Lovenox -) 40 mg SQ DAILY [facility] Last Admin: 05/23/19 09:33 Dose: 40 mg Hydrochlorothiazide (Hctz -) 25 mg PO DAILY [facility] Last Admin: 05/23/19 09:30 Dose: 25 mg Lisinopril (Prinivil) 5 mg PO DAILY [facility] Last Admin: 05/23/19 09:31 Dose: 5 mg Loratadine (Claritin -) 10 mg PO DAILY [facility] Last Admin: 05/23/19 09:31 Dose: 10 mg Methylprednisolone Sodium Succinate (Solu-Medrol -) 60 mg IVPUSH Q6H-IV [facility] Last Admin: 05/23/19 14:44 Dose: 60 mg Montelukast Sodium (Singulair -) 10 mg PO HS [facility] Last Admin: 05/22/19 22:44 Dose: 10 mg Pantoprazole Sodium (Protonix -) 40 mg PO DAILY [facility] Last Admin: 05/23/19 09:30 Dose: 40 mg - Objective Vital Signs: Vital Signs Temperature 98.5 F 05/23/19 10:00 Pulse Rate 63 05/23/19 10:00 Respiratory Rate 18 05/23/19 10:00 Blood Pressure 114/72 02/27/20 10:00 O2 Sat by Pulse Oximetry (%) 93 L 05/23/19 09:00 Constitutional: Yes: Well Nourished, No Distress HENT: Yes: Atraumatic, Normocephalic Neck: Yes: Supple Cardiovascular: Yes: Regular Rate and Rhythm Respiratory: Yes: Wheezes Gastrointestinal: Yes: Normal Bowel Sounds, Soft Musculoskeletal: Yes: WNL Extremities: Yes: WNL Integumentary: Yes: WNL Neurological: Yes: Alert, Oriented Psychiatric: Yes: Alert, Oriented Labs: CBC, BMP 05/23/19 07:12 05/23/19 07:12 Problem List - Problems (1) Asthma exacerbation Assessment/Plan: pulmonary following IV steroids add ppi neb tx Code(s): J45.901 - UNSPECIFIED ASTHMA WITH (ACUTE) EXACERBATION (2) Obesity (BMI 30-39.9) Assessment/Plan: professional nurse referral Code(s): E66.9 - OBESITY, UNSPECIFIED (3) HLD (hyperlipidemia) Assessment/Plan: total chol 162 continue atorvastatin Code(s): E78.5 - HYPERLIPIDEMIA, UNSPECIFIED (4) CALI (acute kidney injury) Assessment/Plan: monitor bun/creat nephro eval appreciated will need outpatient workup Code(s): N17.9 - ACUTE KIDNEY FAILURE, UNSPECIFIED (5) Acute respiratory failure Assessment/Plan: does not have home oxygen monitor sats maintain >92% Code(s): J96.00 - ACUTE RESPIRATORY FAILURE, UNSP W HYPOXIA OR HYPERCAPNIA Qualifiers: Respiratory failure complication: unspecified whether with hypoxia or hypercapnia Qualified Code(s): J96.00 - Acute respiratory failure, unspecified whether with hypoxia or hypercapnia (6) HTN (hypertension) Assessment/Plan: restart home meds Code(s): I10 - ESSENTIAL (PRIMARY) HYPERTENSION
[2019-05-23] MEDS: guaiFENesin 200 MG/10 ML 10 ML UNIT-DOSE CUPS PO PRN (16:15)
[2019-05-23] MEDS: MONTELUKAST NA 10 MG TABLET PO SCH (21:08)
[2019-05-23] MEDS: BUDESONIDE/FORMETEROL FUMARATE 160/4.5 mcg INHALER IH SCH (21:09)
[2019-05-24] MEDS: methylPREDNISolone NA SUCC 40 MG/1 ML VIAL IVPUSH SCH ×4 (03:02→21:08)
[2019-05-24] MEDS: ALBUTEROL SO4 2.5/IPRATROPIUM 0.5 INH SOL 3 ML VIAL.NEB. NEB SCH ×5 (04:30→20:00)
[2019-05-24 08:21] LABS: BLOOD UREA NITROGEN 37.4 mg/dL (7-18); CALCIUM 8.9 mg/dL (8.5-10.1); CREATININE 1.6 mg/dL (0.55-1.3); POTASSIUM 4.4 mmol/L (3.5-5.1)
[2019-05-24 08:27] LABS: BASO % 0.1 % (0-2.0); EOS % 0.1 % (0-4.5); HEMATOCRIT 34.3 % (32.4-45.2); HEMOGLOBIN 11.3 GM/dL (10.7-15.3); LYMPH % 8.2 % (8-40); MCH 26.3 pg (25.7-33.7); MCHC 32.9 g/dl (32.0-36.0); MEAN CELL VOLUME 79.9 fl (80-96); MEAN PLT VOLUME 7.3 fl (7.5-11.1); MONO % 5.4 % (3.8-10.2); NEUT % 86.2 % (42.8-82.8); PLATELET COUNT 366 K/MM3 (134-434); RBC 4.29 M/mm3 (3.60-5.2); RDW 16.2 % (11.6-15.6)
[2019-05-24] MEDS: amLODIPine BESYLATE 10 MG TABLET (FP) PO SCH (09:06)
[2019-05-24] MEDS: ATORVASTATIN CA 80 MG TABLET (FP) PO SCH (09:06)
[2019-05-24] MEDS: HYDROCHLOROTHIAZIDE 25 MG TABLET (FP) PO SCH (09:07)
[2019-05-24] MEDS: ASPIRIN COATED 81 MG TABLET.EC PO SCH (09:07)
[2019-05-24] MEDS: PANTOPRAZOLE 40 MG TABLET PO SCH (09:07)
[2019-05-24] MEDS: guaiFENesin 200 MG/10 ML 10 ML UNIT-DOSE CUPS PO PRN (09:07)
[2019-05-24] MEDS: LISINOPRIL 5 MG TABLET (FP) PO SCH (09:07)
[2019-05-24] MEDS: LORATADINE 10 MG TABLET PO SCH (09:08)
[2019-05-24] MEDS: ENOXAPARIN NA (PORCINE) 40 MG/0.4 ML DISP.SYRIN SQ SCH (09:08)
[2019-05-24] MEDS: BUDESONIDE/FORMETEROL FUMARATE 160/4.5 mcg INHALER IH SCH ×2 (09:09→21:07)
[2019-05-24 09:56] LABS: ANISOCYTOSIS 0; MACROCYTOSIS 0; PLATELET ESTIMATE NORMAL
--- NOTE | 2019-05-24 12:26 | PN ---
Progress Note, Physician History of Present Illness: Pt seen and examined at bedside. SHe is awake and alert. She feels that her wheezing is improving. - Current Medication List Current Medications: Active Medications Albuterol Sulfate (Ventolin Hfa Inhaler -) 2 puff IH Q6H PRN PRN Reason: SHORT OF BREATH/WHEEZING Albuterol/Ipratropium (Duoneb -) 1 amp NEB RQ4H [facility] Last Admin: 05/24/19 07:59 Dose: 1 amp Amlodipine Besylate (Norvasc -) 10 mg PO DAILY [facility] Last Admin: 05/24/19 09:06 Dose: 10 mg Aspirin (Ecotrin -) 81 mg PO DAILY [facility] Last Admin: 05/24/19 09:07 Dose: 81 mg Atorvastatin Calcium (Lipitor -) 80 mg PO DAILY [facility] Last Admin: 05/24/19 09:06 Dose: 80 mg Budesonide/Formoterol Fumarate (Symbicort 160/4.5mcg -) 2 puff IH BID [facility] Last Admin: 05/24/19 09:09 Dose: 2 puff Enoxaparin Sodium (Lovenox -) 40 mg SQ DAILY [facility] Last Admin: 05/24/19 09:08 Dose: 40 mg Guaifenesin (Robitussin -) 10 ml PO Q4H PRN PRN Reason: COUGH Last Admin: 05/24/19 09:07 Dose: 10 ml Hydrochlorothiazide (Hctz -) 25 mg PO DAILY [facility] Last Admin: 05/24/19 09:07 Dose: 25 mg Lisinopril (Prinivil) 5 mg PO DAILY [facility] Last Admin: 05/24/19 09:07 Dose: 5 mg Loratadine (Claritin -) 10 mg PO DAILY [facility] Last Admin: 05/24/19 09:08 Dose: 10 mg Methylprednisolone Sodium Succinate (Solu-Medrol -) 60 mg IVPUSH Q6H-IV [facility] Last Admin: 05/24/19 09:07 Dose: 60 mg Montelukast Sodium (Singulair -) 10 mg PO HS [facility] Last Admin: 05/23/19 21:08 Dose: 10 mg Pantoprazole Sodium (Protonix -) 40 mg PO DAILY [facility] Last Admin: 05/24/19 09:07 Dose: 40 mg - Objective Vital Signs: Vital Signs Temperature 98.7 F 02/28/20 08:55 Pulse Rate 68 05/24/19 08:55 Respiratory Rate 18 05/24/19 09:00 Blood Pressure 138/76 05/24/19 08:55 O2 Sat by Pulse Oximetry (%) 95 05/24/19 09:00 Constitutional: Yes: Calm Eyes: Yes: Conjunctiva Clear HENT: Yes: Atraumatic Neck: Yes: Supple Cardiovascular: Yes: S1, S2 Respiratory: Yes: Wheezes Gastrointestinal: Yes: Soft Genitourinary: Yes: WNL Extremities: Yes: WNL Edema: No Neurological: Yes: Oriented Psychiatric: Yes: Oriented Labs: CBC, BMP 05/24/19 07:19 05/24/19 07:19 Problem List - Problems (1) CALI (acute kidney injury) Code(s): N17.9 - ACUTE KIDNEY FAILURE, UNSPECIFIED (2) Asthma Code(s): J45.909 - UNSPECIFIED ASTHMA, UNCOMPLICATED Qualifiers: Asthma severity: severe Asthma persistence: unspecified Asthma complication type: with acute exacerbation Qualified Code(s): J45.901 - Unspecified asthma with (acute) exacerbation Assessment/Plan Current Medications Generic Name Dose Route Start Last Admin Trade Name Freq PRN Reason Stop Dose Admin Albuterol Sulfate 2 puff 05/21/19 16:16 Ventolin Hfa Inhaler - IH Q6H PRN SHORT OF BREATH/WHEEZING Albuterol/Ipratropium 1 amp 05/22/19 15:00 05/24/19 07:59 Duoneb - NEB 1 amp RQ4H [facility] Administration Amlodipine Besylate 10 mg 05/23/19 10:00 05/24/19 09:06 Norvasc - PO 10 mg DAILY [facility] Administration Aspirin 81 mg 05/23/19 10:00 05/24/19 09:07 Ecotrin - PO 81 mg DAILY [facility] Administration Atorvastatin Calcium 80 mg 05/23/19 10:00 05/24/19 09:06 Lipitor - PO 80 mg DAILY [facility] Administration Budesonide/Formoterol Fumarate 2 puff 05/23/19 22:00 05/24/19 09:09 Symbicort 160/4.5mcg - IH 2 puff BID [facility] Administration Enoxaparin Sodium 40 mg 05/22/19 10:00 05/24/19 09:08 Lovenox - SQ 40 mg DAILY [facility] Administration Guaifenesin 10 ml 05/23/19 15:26 05/24/19 09:07 Robitussin - PO 10 ml Q4H PRN Administration COUGH Hydrochlorothiazide 25 mg 05/23/19 10:00 05/24/19 09:07 Hctz - PO 25 mg DAILY [facility] Administration Lisinopril 5 mg 05/23/19 10:00 05/24/19 09:07 Prinivil PO 5 mg DAILY [facility] Administration Loratadine 10 mg 05/22/19 10:00 05/24/19 09:08 Claritin - PO 10 mg DAILY [facility] Administration Methylprednisolone Sodium Succinate 60 mg 05/21/19 23:00 05/24/19 09:07 Solu-Medrol - IVPUSH 60 mg Q6H-IV [facility] Administration Montelukast Sodium 10 mg 05/22/19 22:00 05/23/19 21:08 Singulair - PO 10 mg HS [facility] Administration Pantoprazole Sodium 40 mg 05/23/19 10:00 05/24/19 09:07 Protonix - PO 40 mg DAILY [facility] Administration Impression 1. CKD 2. htn 3. DM 4. asthma 5. dyspnea 6. bipolar Plan - pt has baseline director of testing of 2, spoke to PMD - will need outpt renal workup - 2 gram sodium diet - wheezing improved - can see in office next week - avoid nsaids
--- NOTE | 2019-05-24 13:47 | PN ---
Progress Note, Physician History of Present Illness: pulmonary alert,still c/o sob,cough - Current Medication List Current Medications: Active Medications Albuterol Sulfate (Ventolin Hfa Inhaler -) 2 puff IH Q6H PRN PRN Reason: SHORT OF BREATH/WHEEZING Albuterol/Ipratropium (Duoneb -) 1 amp NEB RQ4H [facility] Last Admin: 05/24/19 12:31 Dose: 1 amp Amlodipine Besylate (Norvasc -) 10 mg PO DAILY [facility] Last Admin: 05/24/19 09:06 Dose: 10 mg Aspirin (Ecotrin -) 81 mg PO DAILY [facility] Last Admin: 05/24/19 09:07 Dose: 81 mg Atorvastatin Calcium (Lipitor -) 80 mg PO DAILY [facility] Last Admin: 05/24/19 09:06 Dose: 80 mg Budesonide/Formoterol Fumarate (Symbicort 160/4.5mcg -) 2 puff IH BID [facility] Last Admin: 05/24/19 09:09 Dose: 2 puff Enoxaparin Sodium (Lovenox -) 40 mg SQ DAILY [facility] Last Admin: 05/24/19 09:08 Dose: 40 mg Guaifenesin (Robitussin -) 10 ml PO Q4H PRN PRN Reason: COUGH Last Admin: 05/24/19 09:07 Dose: 10 ml Hydrochlorothiazide (Hctz -) 25 mg PO DAILY [facility] Last Admin: 05/24/19 09:07 Dose: 25 mg Lisinopril (Prinivil) 5 mg PO DAILY [facility] Last Admin: 05/24/19 09:07 Dose: 5 mg Loratadine (Claritin -) 10 mg PO DAILY [facility] Last Admin: 05/24/19 09:08 Dose: 10 mg Methylprednisolone Sodium Succinate (Solu-Medrol -) 60 mg IVPUSH Q6H-IV [facility] Last Admin: 05/24/19 09:07 Dose: 60 mg Montelukast Sodium (Singulair -) 10 mg PO HS [facility] Last Admin: 05/23/19 21:08 Dose: 10 mg Pantoprazole Sodium (Protonix -) 40 mg PO DAILY [facility] Last Admin: 05/24/19 09:07 Dose: 40 mg - Objective Vital Signs: Vital Signs Temperature 98.7 F 05/24/19 08:55 Pulse Rate 68 05/24/19 08:55 Respiratory Rate 18 05/24/19 09:00 Blood Pressure 138/76 05/24/19 08:55 O2 Sat by Pulse Oximetry (%) 95 05/24/19 09:00 Constitutional: Yes: Well Nourished, Calm Eyes: Yes: WNL HENT: Yes: WNL Neck: Yes: WNL Cardiovascular: Yes: Regular Rate and Rhythm, S1, S2 Respiratory: Yes: Wheezes (bilateral wheezes) Gastrointestinal: Yes: Normal Bowel Sounds, Soft Extremities: Yes: WNL Edema: No Labs: CBC, BMP 05/24/19 07:19 05/24/19 07:19 Problem List - Problems (1) Eosinophil count raised Code(s): D72.1 - EOSINOPHILIA (2) Asthma Code(s): J45.909 - UNSPECIFIED ASTHMA, UNCOMPLICATED Qualifiers: Asthma severity: severe Asthma persistence: unspecified Asthma complication type: with acute exacerbation Qualified Code(s): J45.901 - Unspecified asthma with (acute) exacerbation (3) Cough Code(s): R05 - COUGH (4) ASHD (arteriosclerotic heart disease) Code(s): I25.10 - ATHSCL HEART DISEASE OF [place] CORONARY ARTERY W/O ANG PCTRS (5) HTN (hypertension) Code(s): I10 - ESSENTIAL (PRIMARY) HYPERTENSION (6) Asthma exacerbation Code(s): J45.901 - UNSPECIFIED ASTHMA WITH (ACUTE) EXACERBATION (7) Sleep apnea Code(s): G47.30 - SLEEP APNEA, UNSPECIFIED Assessment/Plan IMP DYSPNEA ACUTE ASTHMA EXACERBATION COUGH ASHD S/P [place] HTN HLD CALI TOBACCO ABUSE EOSINOPHILIA JUAN ON CPAP PLAN TAPER STEROIDS INHALED BRONCHODILATORS O2 PEAK FLOW MONITOR CBC,EOSINOPHIL CT,LYTES,RENAL FUNCTION SERUM IGE LEVEL OUTPATIENT WHEN OFF STEROIDS OUTPATIENT PFTS CPAP AT NIGHT SMOKING CESSATION COUNSELED DR ASHRAF Problem List - Problems (1) Eosinophil count raised Code(s): D72.1 - EOSINOPHILIA (2) Asthma Code(s): J45.909 - UNSPECIFIED ASTHMA, UNCOMPLICATED Qualifiers: Asthma severity: severe Asthma persistence: unspecified Asthma complication type: with acute exacerbation Qualified Code(s): J45.901 - Unspecified asthma with (acute) exacerbation (3) Cough Code(s): R05 - COUGH (4) ASHD (arteriosclerotic heart disease) Code(s): I25.10 - ATHSCL HEART DISEASE OF [place] CORONARY ARTERY W/O ANG PCTRS (5) HTN (hypertension) Code(s): I10 - ESSENTIAL (PRIMARY) HYPERTENSION (6) Asthma exacerbation Code(s): J45.901 - UNSPECIFIED ASTHMA WITH (ACUTE) EXACERBATION (7) Sleep apnea Code(s): G47.30 - SLEEP APNEA, UNSPECIFIED
--- NOTE | 2019-05-24 15:24 | PN ---
Progress Note, Physician Chief Complaint: sob and coughing History of Present Illness: 53 year old obese female with PMH HTN, HLD, obesity, eczema, asthma, ? bipolar disorder presents to the ED with sob/coughing. she is evalauted by pulmonology, nephrology. - Current Medication List Current Medications: Active Medications Albuterol Sulfate (Ventolin Hfa Inhaler -) 2 puff IH Q6H PRN PRN Reason: SHORT OF BREATH/WHEEZING Albuterol/Ipratropium (Duoneb -) 1 amp NEB RQ4H [facility] Last Admin: 05/24/19 12:31 Dose: 1 amp Amlodipine Besylate (Norvasc -) 10 mg PO DAILY [facility] Last Admin: 05/24/19 09:06 Dose: 10 mg Aspirin (Ecotrin -) 81 mg PO DAILY [facility] Last Admin: 05/24/19 09:07 Dose: 81 mg Atorvastatin Calcium (Lipitor -) 80 mg PO DAILY [facility] Last Admin: 05/24/19 09:06 Dose: 80 mg Budesonide/Formoterol Fumarate (Symbicort 160/4.5mcg -) 2 puff IH BID [facility] Last Admin: 05/24/19 09:09 Dose: 2 puff Enoxaparin Sodium (Lovenox -) 40 mg SQ DAILY [facility] Last Admin: 05/24/19 09:08 Dose: 40 mg Guaifenesin (Robitussin -) 10 ml PO Q4H PRN PRN Reason: COUGH Last Admin: 05/24/19 09:07 Dose: 10 ml Hydrochlorothiazide (Hctz -) 25 mg PO DAILY [facility] Last Admin: 05/24/19 09:07 Dose: 25 mg Lisinopril (Prinivil) 5 mg PO DAILY [facility] Last Admin: 05/24/19 09:07 Dose: 5 mg Loratadine (Claritin -) 10 mg PO DAILY [facility] Last Admin: 05/24/19 09:08 Dose: 10 mg Methylprednisolone Sodium Succinate (Solu-Medrol -) 60 mg IVPUSH Q8H [facility] Montelukast Sodium (Singulair -) 10 mg PO HS [facility] Last Admin: 05/23/19 21:08 Dose: 10 mg Pantoprazole Sodium (Protonix -) 40 mg PO DAILY [facility] Last Admin: 05/24/19 09:07 Dose: 40 mg - Objective Vital Signs: Vital Signs Temperature 98 F 02/28/20 14:00 Pulse Rate 89 05/24/19 14:00 Respiratory Rate 18 05/24/19 14:00 Blood Pressure 107/57 L 05/24/19 14:00 O2 Sat by Pulse Oximetry (%) 95 05/24/19 09:00 Constitutional: Yes: No Distress HENT: Yes: Atraumatic, Normocephalic Neck: Yes: Supple Cardiovascular: Yes: Regular Rate and Rhythm Respiratory: Yes: Wheezes Gastrointestinal: Yes: Normal Bowel Sounds, Soft Genitourinary: Yes: WNL Musculoskeletal: Yes: WNL Extremities: Yes: WNL Integumentary: Yes: WNL Neurological: Yes: Alert, Oriented Labs: CBC, BMP 05/24/19 07:19 05/24/19 07:19 Problem List - Problems (1) Asthma exacerbation Assessment/Plan: pulmonary following IV steroids add ppi neb tx Code(s): J45.901 - UNSPECIFIED ASTHMA WITH (ACUTE) EXACERBATION (2) Obesity (BMI 30-39.9) Assessment/Plan: abap developer referral Code(s): E66.9 - OBESITY, UNSPECIFIED (3) HLD (hyperlipidemia) Assessment/Plan: total chol 162 continue atorvastatin Code(s): E78.5 - HYPERLIPIDEMIA, UNSPECIFIED (4) CALI (acute kidney injury) Assessment/Plan: monitor bun/creat nephro eval appreciated will need outpatient workup Code(s): N17.9 - ACUTE KIDNEY FAILURE, UNSPECIFIED (5) Acute respiratory failure Assessment/Plan: does not have home oxygen monitor sats maintain >92% Code(s): J96.00 - ACUTE RESPIRATORY FAILURE, UNSP W HYPOXIA OR HYPERCAPNIA Qualifiers: Respiratory failure complication: unspecified whether with hypoxia or hypercapnia Qualified Code(s): J96.00 - Acute respiratory failure, unspecified whether with hypoxia or hypercapnia (6) HTN (hypertension) Assessment/Plan: restart home meds Code(s): I10 - ESSENTIAL (PRIMARY) HYPERTENSION
[2019-05-24] MEDS ORDERED: methylPREDNISolone NA SUCC 40 MG/1 ML VIAL IVPUSH SCH (18:00)
[2019-05-24] MEDS: MONTELUKAST NA 10 MG TABLET PO SCH (21:08)
[2019-05-25] MEDS: ALBUTEROL SO4 2.5/IPRATROPIUM 0.5 INH SOL 3 ML VIAL.NEB. NEB SCH ×6 (04:00→20:25)
[2019-05-25] MEDS: methylPREDNISolone NA SUCC 40 MG/1 ML VIAL IVPUSH SCH ×3 (06:09→22:18)
[2019-05-25 08:43] LABS: BASO % 0.3 % (0-2.0); EOS % 0.1 % (0-4.5); HEMATOCRIT 32.6 % (32.4-45.2); HEMOGLOBIN 10.7 GM/dL (10.7-15.3); LYMPH % 9.3 % (8-40); MCH 25.9 pg (25.7-33.7); MCHC 32.7 g/dl (32.0-36.0); MEAN CELL VOLUME 79.1 fl (80-96); MEAN PLT VOLUME 7.4 fl (7.5-11.1); MONO % 11.6 % (3.8-10.2); NEUT % 78.7 % (42.8-82.8); PLATELET COUNT 364 K/MM3 (134-434); RBC 4.12 M/mm3 (3.60-5.2); RDW 16.1 % (11.6-15.6); WHITE BLOOD COUNT 13.9 K/mm3 (4.0-10.0)
[2019-05-25] MEDS: ENOXAPARIN NA (PORCINE) 40 MG/0.4 ML DISP.SYRIN SQ SCH (09:21)
[2019-05-25] MEDS: BUDESONIDE/FORMETEROL FUMARATE 160/4.5 mcg INHALER IH SCH ×2 (09:21→22:20)
[2019-05-25] MEDS: ASPIRIN COATED 81 MG TABLET.EC PO SCH (09:22)
[2019-05-25] MEDS: LISINOPRIL 5 MG TABLET (FP) PO SCH (09:22)
[2019-05-25] MEDS: amLODIPine BESYLATE 10 MG TABLET (FP) PO SCH (09:22)
[2019-05-25] MEDS: ATORVASTATIN CA 80 MG TABLET (FP) PO SCH (09:22)
[2019-05-25] MEDS: PANTOPRAZOLE 40 MG TABLET PO SCH (09:22)
[2019-05-25] MEDS: LORATADINE 10 MG TABLET PO SCH (09:22)
[2019-05-25] MEDS: HYDROCHLOROTHIAZIDE 25 MG TABLET (FP) PO SCH (09:22)
[2019-05-25 09:31] LABS: ALBUMIN 2.7 g/dl (3.4-5.0); BILIRUBIN,TOTAL 0.3 mg/dL (0.2-1); BLOOD UREA NITROGEN 42.6 mg/dL (7-18); CALCIUM 8.3 mg/dL (8.5-10.1); CREATININE 1.6 mg/dL (0.55-1.3); POTASSIUM 4.1 mmol/L (3.5-5.1)
--- NOTE | 2019-05-25 10:06 | PN ---
Progress Note, Physician Chief Complaint: Asthma Chest Pain History of Present Illness: Previous notes and events reviewed awake and alert NAD sts her breathing is improving productive cough with white phlegm sts having episodes of mid chest pain-Cardiology consult placed, EKG - Current Medication List Current Medications: Active Medications Albuterol Sulfate (Ventolin Hfa Inhaler -) 2 puff IH Q6H PRN PRN Reason: SHORT OF BREATH/WHEEZING Albuterol/Ipratropium (Duoneb -) 1 amp NEB RQ4H [facility] Last Admin: 05/25/19 07:20 Dose: 1 amp Amlodipine Besylate (Norvasc -) 10 mg PO DAILY [facility] Last Admin: 05/25/19 09:22 Dose: 10 mg Aspirin (Ecotrin -) 81 mg PO DAILY [facility] Last Admin: 05/25/19 09:22 Dose: 81 mg Atorvastatin Calcium (Lipitor -) 80 mg PO DAILY [facility] Last Admin: 05/25/19 09:22 Dose: 80 mg Budesonide/Formoterol Fumarate (Symbicort 160/4.5mcg -) 2 puff IH BID [facility] Last Admin: 05/25/19 09:21 Dose: 2 puff Enoxaparin Sodium (Lovenox -) 40 mg SQ DAILY [facility] Last Admin: 05/25/19 09:21 Dose: 40 mg Guaifenesin (Robitussin -) 10 ml PO Q4H PRN PRN Reason: COUGH Last Admin: 05/24/19 09:07 Dose: 10 ml Hydrochlorothiazide (Hctz -) 25 mg PO DAILY [facility] Last Admin: 05/25/19 09:22 Dose: 25 mg Lisinopril (Prinivil) 5 mg PO DAILY [facility] Last Admin: 05/25/19 09:22 Dose: 5 mg Loratadine (Claritin -) 10 mg PO DAILY [facility] Last Admin: 05/25/19 09:22 Dose: 10 mg Methylprednisolone Sodium Succinate (Solu-Medrol -) 60 mg IVPUSH Q8H [facility] Last Admin: 05/25/19 06:09 Dose: 60 mg Montelukast Sodium (Singulair -) 10 mg PO HS [facility] Last Admin: 05/24/19 21:08 Dose: 10 mg Pantoprazole Sodium (Protonix -) 40 mg PO DAILY [facility] Last Admin: 05/25/19 09:22 Dose: 40 mg - Objective Vital Signs: Vital Signs Temperature 99 F 05/25/19 08:49 Pulse Rate 91 H 05/25/19 08:49 Respiratory Rate 18 05/25/19 08:49 Blood Pressure 149/81 05/25/19 08:49 O2 Sat by Pulse Oximetry (%) 95 05/24/19 21:00 Constitutional: Yes: No Distress, Calm Eyes: Yes: Conjunctiva Clear HENT: Yes: Atraumatic Cardiovascular: Yes: Regular Rate and Rhythm Respiratory: Yes: Regular, Cough, Wheezes Gastrointestinal: Yes: Normal Bowel Sounds, Soft Musculoskeletal: Yes: WNL Extremities: Yes: WNL Edema: No Neurological: Yes: Alert, Oriented Psychiatric: Yes: Alert, Oriented Labs: CBC, BMP 05/25/19 06:55 05/25/19 06:55 Microbiology 05/22/19 15:30 Sputum - Expectorated Gram Stain - Final 05/22/19 15:30 Sputum - Expectorated Sputum Culture - Preliminary Lactose Fermenting Neg Bacilli 05/22/19 02:43 Urine - Urine Clean Catch Legionella Antigen - Final 05/22/19 02:43 Urine - Urine Clean Catch Streptococcus pneumoniae Antigen ( M - Final Problem List - Problems (1) CALI (acute kidney injury) Assessment/Plan: BUN/Cr 42.6/1.6 monitor renal function daily Renal US shows no hydronephrosis, possible mild right renal atrophy Renal consult Code(s): N17.9 - ACUTE KIDNEY FAILURE, UNSPECIFIED (2) ASHD (arteriosclerotic heart disease) Assessment/Plan: Atrovastatin Code(s): I25.10 - ATHSCL HEART DISEASE OF [place] CORONARY ARTERY W/O ANG PCTRS (3) Asthma Assessment/Plan: Pulmonary on board Bronchodilators IV Medrol Bipap HS O2 via NC keep SpO2 >90% outpatient PFTs Montelukast Symbicort Code(s): J45.909 - UNSPECIFIED ASTHMA, UNCOMPLICATED Qualifiers: Asthma severity: severe Asthma persistence: unspecified Asthma complication type: with acute exacerbation Qualified Code(s): J45.901 - Unspecified asthma with (acute) exacerbation (4) HLD (hyperlipidemia) Assessment/Plan: Atorvastatin Code(s): E78.5 - HYPERLIPIDEMIA, UNSPECIFIED (5) HTN (hypertension) Assessment/Plan: Amlodipine, Lisinopril, HCTZ low Na diet Code(s): I10 - ESSENTIAL (PRIMARY) HYPERTENSION (6) Chest pain Assessment/Plan: Cardiology consult EKG troponin neg x 2 Code(s): R07.9 - CHEST PAIN, UNSPECIFIED Assessment/Plan see problem list dvt ppx
[2019-05-25 11:09] LABS: ANISOCYTOSIS 1+; MACROCYTOSIS 0; PLATELET ESTIMATE NORMAL
--- NOTE | 2019-05-25 13:05 | PN ---
Progress Note (short form) - Note Progress Note: Breathing feels better. Less SOB. Used NIPPV support overnight. Intake & Output 05/22/19 05/23/19 05/24/19 05/25/19 23:59 23:59 23:59 23:59 Intake Total 800 1500 200 Balance 800 1500 200 Weight 228 lb 14.4 oz 228 lb Last Vital Signs Temp Pulse Resp BP Pulse Ox 99 F 91 H 18 149/81 95 05/25/19 08:49 05/25/19 08:49 05/25/19 08:49 05/25/19 08:49 05/25/19 09:00 Active Medications Albuterol Sulfate (Ventolin Hfa Inhaler -) 2 puff IH Q6H PRN PRN Reason: SHORT OF BREATH/WHEEZING Albuterol/Ipratropium (Duoneb -) 1 amp NEB RQ4H [facility] Last Admin: 05/25/19 11:20 Dose: 1 amp Amlodipine Besylate (Norvasc -) 10 mg PO DAILY [facility] Last Admin: 05/25/19 09:22 Dose: 10 mg Aspirin (Ecotrin -) 81 mg PO DAILY [facility] Last Admin: 05/25/19 09:22 Dose: 81 mg Atorvastatin Calcium (Lipitor -) 80 mg PO DAILY [facility] Last Admin: 05/25/19 09:22 Dose: 80 mg Budesonide/Formoterol Fumarate (Symbicort 160/4.5mcg -) 2 puff IH BID [facility] Last Admin: 05/25/19 09:21 Dose: 2 puff Enoxaparin Sodium (Lovenox -) 40 mg SQ DAILY [facility] Last Admin: 05/25/19 09:21 Dose: 40 mg Guaifenesin (Robitussin -) 10 ml PO Q4H PRN PRN Reason: COUGH Last Admin: 05/24/19 09:07 Dose: 10 ml Hydrochlorothiazide (Hctz -) 25 mg PO DAILY [facility] Last Admin: 05/25/19 09:22 Dose: 25 mg Lisinopril (Prinivil) 5 mg PO DAILY [facility] Last Admin: 05/25/19 09:22 Dose: 5 mg Loratadine (Claritin -) 10 mg PO DAILY [facility] Last Admin: 05/25/19 09:22 Dose: 10 mg Methylprednisolone Sodium Succinate (Solu-Medrol -) 60 mg IVPUSH Q8H [facility] Last Admin: 02/29/20 06:09 Dose: 60 mg Montelukast Sodium (Singulair -) 10 mg PO HS [facility] Last Admin: 05/24/19 21:08 Dose: 10 mg Pantoprazole Sodium (Protonix -) 40 mg PO DAILY [facility] Last Admin: 05/25/19 09:22 Dose: 40 mg Constitutional: Yes: NAD Eyes: Yes: WNL HENT: Yes: WNL Neck: Yes: WNL Cardiovascular: Yes: Regular Rate and Rhythm, S1, S2 Respiratory: Yes: Scattered rhonchi and Expiratory Wheezes Gastrointestinal: Yes: Normal Bowel Sounds, Soft Extremities: Yes: WNL Edema: No Labs: Laboratory Results - last 24 hr 05/25/19 05/25/19 05/25/19 06:55 06:55 12:06 WBC 13.9 H RBC 4.12 Hgb 10.7 Hct 32.6 MCV 79.1 L MCH 25.9 MCHC 32.7 RDW 16.1 H Plt Count 364 MPV 7.4 L Absolute Neuts (auto) 11.0 H Neutrophils % 78.7 Neutrophils % (Manual) 75.8 Band Neutrophils % 0.0 Lymphocytes % 9.3 Lymphocytes % (Manual) 10.1 D Monocytes % 11.6 H D Monocytes % (Manual) 10 Eosinophils % 0.1 Eosinophils % (Manual) 0.0 Basophils % 0.3 Basophils % (Manual) 0.0 Myelocytes % (Man) 2 D Promyelocytes % (Man) 1 D Blast Cells % (Manual) 0 Nucleated RBC % 1 H Metamyelocytes 0 D Hypochromia 0 Platelet Estimate Normal Polychromasia 1+ Poikilocytosis 0 Anisocytosis 1+ Microcytosis 1+ Macrocytosis 0 Sodium 138 Potassium 4.1 Chloride 103 Carbon Dioxide 28 Anion Gap 6 L BUN 42.6 H Creatinine 1.6 H Est GFR (CKD-EPI)AfAm 42.20 Est GFR (CKD-EPI)NonAf 36.41 POC Glucometer 156 Random Glucose 134 H Calcium 8.3 L Total Bilirubin 0.3 AST 15 ALT 27 Alkaline Phosphatase 60 Total Protein 6.0 L Albumin 2.7 L Problem List - Problems (1) Eosinophil count raised Code(s): D72.1 - EOSINOPHILIA (2) Asthma Code(s): J45.909 - UNSPECIFIED ASTHMA, UNCOMPLICATED Qualifiers: Asthma severity: severe Asthma persistence: unspecified Asthma complication type: with acute exacerbation Qualified Code(s): J45.901 - Unspecified asthma with (acute) exacerbation (3) Cough Code(s): R05 - COUGH (4) ASHD (arteriosclerotic heart disease) Code(s): I25.10 - ATHSCL HEART DISEASE OF [place] CORONARY ARTERY W/O ANG PCTRS (5) HTN (hypertension) Code(s): I10 - ESSENTIAL (PRIMARY) HYPERTENSION (6) Asthma exacerbation Code(s): J45.901 - UNSPECIFIED ASTHMA WITH (ACUTE) EXACERBATION (7) Sleep apnea Code(s): G47.30 - SLEEP APNEA, UNSPECIFIED Assessment/Plan IMP DYSPNEA ACUTE ASTHMA EXACERBATION COUGH ASHD S/P AL HTN HLD CALI TOBACCO ABUSE EOSINOPHILIA JUAN ON CPAP PLAN TAPER STEROIDS INHALED BRONCHODILATORS O2 PEAK FLOW MONITOR CBC,EOSINOPHIL CT,LYTES,RENAL FUNCTION SERUM IGE LEVEL OUTPATIENT WHEN OFF STEROIDS OUTPATIENT PFTS CPAP AT NIGHT SMOKING CESSATION COUNSELED DR TORRES
[2019-05-25] MEDS ORDERED: PT OWN MED DRAWER 7, Y5N ONE (21:53)
[2019-05-25] MEDS: MONTELUKAST NA 10 MG TABLET PO SCH (22:20)
[2019-05-26] MEDS: ALBUTEROL SO4 2.5/IPRATROPIUM 0.5 INH SOL 3 ML VIAL.NEB. NEB SCH ×7 (00:08→21:00)
[2019-05-26] MEDS: methylPREDNISolone NA SUCC 40 MG/1 ML VIAL IVPUSH SCH ×3 (06:56→23:01)
--- NOTE | 2019-05-26 09:34 | CON.CARD ---
Consult Consult Specialty:: Cardiology Referred by:: Shawn Reason for Consultation:: chest pain - History of Present Illness Chief Complaint: sob History of Present Illness: 53 year old female with a pmhx of htn, hld, obesity, asthma/copd, heavy tobacco history, and ?bipolar admitted with sob/wheezing and chest tightness. + productive cough. Chest tightness with movements in bed and when getting up. No chest pain on exertion but gets sob. No palpitations. No pnd, orthopnea, or edema. Symptoms improving with steroids. - History Source History Provided By: Patient, Medical Record - Past Medical History Cardio/Vascular: Yes: HTN Pulmonary: Yes: Asthma ...LMP: 05/22/19 ...: No Psych: Yes: Bipolar - Alcohol/Substance Use Hx Alcohol Use: No - Smoking History Smoking history: Former smoker Have you smoked in the past 12 months: No Aproximately how many cigarettes per day: 10 If you are a former smoker, when did you quit?: 01/2019 Home Medications - Allergies Allergies/Adverse Reactions: Allergies Allergy/AdvReac Type Severity Reaction Status Date / Time fluoxetine [From Prozac] Allergy Verified 05/22/19 04:46 haloperidol [From Haldol] Allergy Verified 05/21/19 15:03 haloperidol lactate Allergy Verified 05/21/19 15:03 [From Haldol] sertraline [From Zoloft] Allergy Verified 05/22/19 04:46 shellfish derived Allergy Verified 05/21/19 15:03 - Home Medications Home Medications: Ambulatory Orders Albuterol 2.5/Ipratropium 0.5 1 neb PO QID 05/22/19 Amlodipine Besylate [Norvasc -] 10 mg PO DAILY 05/22/19 Aspirin [Aspirin EC] 81 mg PO DAILY 05/22/19 Atorvastatin Ca [Lipitor] 80 mg PO DAILY 05/22/19 Hydrochlorothiazide 25 mg PO DAILY 05/22/19 Lisinopril 5 mg PO DAILY 05/22/19 Vital Signs: Vital Signs Temperature 98.4 F 05/26/19 06:00 Pulse Rate 70 05/26/19 07:40 Respiratory Rate 20 05/26/19 07:40 Blood Pressure 133/81 05/26/19 07:40 O2 Sat by Pulse Oximetry (%) 95 05/26/19 00:07 Constitutional: Yes: No Distress Neck: Yes: Supple Respiratory: Yes: Wheezes Gastrointestinal: Yes: Soft Cardiovascular: Yes: Regular Rate and Rhythm JVD: No Carotid Bruit: No PMI: Non-Displaced Heart Sounds: Yes: S1, S2 Murmur: No: Systolic Murmur Edema: No Imaging - Results Chest X-ray: Report Reviewed EKG: Image Reviewed Problem List - Problems (1) Chest pain Code(s): R07.9 - CHEST PAIN, UNSPECIFIED Assessment/Plan 53 year old female with a pmhx of htn, hld, obesity, asthma/copd, heavy tobacco history, and ?bipolar admitted with sob/wheezing and chest tightness. + productive cough. Chest tightness with movements in bed and when getting up. No chest pain on exertion but gets sob. No palpitations. No pnd, orthopnea, or edema. Symptoms improving with steroids. 1) Chest tightness Likely related to her wheezing EKG on 05/21/19 with no acute ischemic changes in sinus rhythm Trops negative No signs of CHF on exam Had a cardiac cath on 04/05/19 at [facility] with normal coronaries. Echocardiogram 04/06/19 at [facility] with normal LVEF and no significant valve disease Symptoms are non cardiac. No further cardiac work up. BP and lipid control. Smoking cessation.
[2019-05-26 09:36] LABS: HEMATOCRIT 34.7 % (32.4-45.2); HEMOGLOBIN 11.4 GM/dL (10.7-15.3); MCH 25.9 pg (25.7-33.7); MCHC 32.9 g/dl (32.0-36.0); MEAN CELL VOLUME 78.6 fl (80-96); MEAN PLT VOLUME 7.4 fl (7.5-11.1); PLATELET COUNT 376 K/MM3 (134-434); RBC 4.42 M/mm3 (3.60-5.2); RDW 15.9 % (11.6-15.6); WHITE BLOOD COUNT 15.2 K/mm3 (4.0-10.0)
[2019-05-26] MEDS: ASPIRIN COATED 81 MG TABLET.EC PO SCH (09:39)
[2019-05-26] MEDS: ATORVASTATIN CA 80 MG TABLET (FP) PO SCH (09:39)
[2019-05-26] MEDS: HYDROCHLOROTHIAZIDE 25 MG TABLET (FP) PO SCH (09:40)
[2019-05-26] MEDS: PANTOPRAZOLE 40 MG TABLET PO SCH (09:40)
[2019-05-26] MEDS: ENOXAPARIN NA (PORCINE) 40 MG/0.4 ML DISP.SYRIN SQ SCH (09:40)
[2019-05-26] MEDS: LORATADINE 10 MG TABLET PO SCH (09:40)
[2019-05-26] MEDS: LISINOPRIL 5 MG TABLET (FP) PO SCH (09:40)
[2019-05-26] MEDS: amLODIPine BESYLATE 10 MG TABLET (FP) PO SCH (09:40)
[2019-05-26] MEDS: BUDESONIDE/FORMETEROL FUMARATE 160/4.5 mcg INHALER IH SCH ×2 (09:43→23:01)
[2019-05-26 10:01] LABS: ALBUMIN 2.9 g/dl (3.4-5.0); BILIRUBIN,TOTAL 0.3 mg/dL (0.2-1); BLOOD UREA NITROGEN 49.8 mg/dL (7-18); CREATININE 1.7 mg/dL (0.55-1.3); POTASSIUM 4.3 mmol/L (3.5-5.1); TOT PROT 6.2 g/dl (6.4-8.2)
--- NOTE | 2019-05-26 11:03 | PN ---
Progress Note, Physician Chief Complaint: Asthma Chest Pain History of Present Illness: Previous notes and events reviewed awake and alert NAD sts her breathing is improving, but with SOB at times productive cough with white phlegm denies chest pain or palpitations sputum culture positive - Current Medication List Current Medications: Active Medications Albuterol Sulfate (Ventolin Hfa Inhaler -) 2 puff IH Q6H PRN PRN Reason: SHORT OF BREATH/WHEEZING Albuterol/Ipratropium (Duoneb -) 1 amp NEB RQ4H [facility] Last Admin: 05/26/19 08:30 Dose: 1 amp Amlodipine Besylate (Norvasc -) 10 mg PO DAILY [facility] Last Admin: 05/26/19 09:40 Dose: 10 mg Aspirin (Ecotrin -) 81 mg PO DAILY [facility] Last Admin: 05/26/19 09:39 Dose: 81 mg Atorvastatin Calcium (Lipitor -) 80 mg PO DAILY [facility] Last Admin: 05/26/19 09:39 Dose: 80 mg Budesonide/Formoterol Fumarate (Symbicort 160/4.5mcg -) 2 puff IH BID [facility] Last Admin: 05/26/19 09:43 Dose: 2 puff Enoxaparin Sodium (Lovenox -) 40 mg SQ DAILY [facility] Last Admin: 05/26/19 09:40 Dose: 40 mg Guaifenesin (Robitussin -) 10 ml PO Q4H PRN PRN Reason: COUGH Last Admin: 05/24/19 09:07 Dose: 10 ml Hydrochlorothiazide (Hctz -) 25 mg PO DAILY [facility] Last Admin: 05/26/19 09:40 Dose: 25 mg Lisinopril (Prinivil) 5 mg PO DAILY [facility] Last Admin: 05/26/19 09:40 Dose: 5 mg Loratadine (Claritin -) 10 mg PO DAILY [facility] Last Admin: 05/26/19 09:40 Dose: 10 mg Methylprednisolone Sodium Succinate (Solu-Medrol -) 60 mg IVPUSH Q8H [facility] Last Admin: 05/26/19 06:56 Dose: 60 mg Montelukast Sodium (Singulair -) 10 mg PO HS [facility] Last Admin: 05/25/19 22:20 Dose: 10 mg Pantoprazole Sodium (Protonix -) 40 mg PO DAILY [facility] Last Admin: 05/26/19 09:40 Dose: 40 mg - Objective Vital Signs: Vital Signs Temperature 98.5 F 05/26/19 09:32 Pulse Rate 86 05/26/19 09:32 Respiratory Rate 20 05/26/19 09:32 Blood Pressure 127/67 05/26/19 09:32 O2 Sat by Pulse Oximetry (%) 95 05/26/19 00:07 Constitutional: Yes: No Distress, Calm, Obese Eyes: Yes: Conjunctiva Clear HENT: Yes: Atraumatic Cardiovascular: Yes: Regular Rate and Rhythm Respiratory: Yes: Regular, On Nasal O2, Wheezes Gastrointestinal: Yes: Normal Bowel Sounds, Soft, Abdomen, Obese Musculoskeletal: Yes: WNL Extremities: Yes: WNL Edema: No Neurological: Yes: Alert, Oriented Psychiatric: Yes: Alert, Oriented Labs: CBC, BMP 05/26/19 08:58 05/26/19 08:58 Problem List - Problems (1) CALI (acute kidney injury) Assessment/Plan: BUN/Cr 49.8/1.7 monitor renal function daily Renal US shows no hydronephrosis, possible mild right renal atrophy Renal consult Code(s): N17.9 - ACUTE KIDNEY FAILURE, UNSPECIFIED (2) ASHD (arteriosclerotic heart disease) Assessment/Plan: Atrovastatin Code(s): I25.10 - ATHSCL HEART DISEASE OF [place] CORONARY ARTERY W/O ANG PCTRS (3) Asthma Assessment/Plan: Pulmonary on board Bronchodilators IV Medrol Bipap HS O2 via NC keep SpO2 >90% outpatient PFTs Montelukast Symbicort Code(s): J45.909 - UNSPECIFIED ASTHMA, UNCOMPLICATED Qualifiers: Asthma severity: severe Asthma persistence: unspecified Asthma complication type: with acute exacerbation Qualified Code(s): J45.901 - Unspecified asthma with (acute) exacerbation (4) HLD (hyperlipidemia) Assessment/Plan: Atorvastatin Code(s): E78.5 - HYPERLIPIDEMIA, UNSPECIFIED (5) HTN (hypertension) Assessment/Plan: Amlodipine, Lisinopril, HCTZ low Na diet Code(s): I10 - ESSENTIAL (PRIMARY) HYPERTENSION (6) Chest pain Assessment/Plan: Cardiology on board EKG troponin neg x 2 Code(s): R07.9 - CHEST PAIN, UNSPECIFIED Assessment/Plan see problem list dvt ppx
--- NOTE | 2019-05-26 12:57 | PN ---
Progress Note (short form) - Note Progress Note: Breathing feels better. Less SOB. Used NIPPV support overnight. Intake & Output 05/23/19 05/24/19 05/25/19 05/26/19 23:59 23:59 23:59 23:59 Intake Total 1500 200 600 200 Balance 1500 200 600 200 Weight 228 lb Last Vital Signs Temp Pulse Resp BP Pulse Ox 98.5 F 86 20 127/67 95 05/26/19 09:32 05/26/19 09:32 05/26/19 09:32 05/26/19 09:32 05/26/19 00:07 Active Medications Albuterol Sulfate (Ventolin Hfa Inhaler -) 2 puff IH Q6H PRN PRN Reason: SHORT OF BREATH/WHEEZING Albuterol/Ipratropium (Duoneb -) 1 amp NEB RQ4H [facility] Last Admin: 05/26/19 08:30 Dose: 1 amp Amlodipine Besylate (Norvasc -) 10 mg PO DAILY [facility] Last Admin: 05/26/19 09:40 Dose: 10 mg Aspirin (Ecotrin -) 81 mg PO DAILY [facility] Last Admin: 05/26/19 09:39 Dose: 81 mg Atorvastatin Calcium (Lipitor -) 80 mg PO DAILY [facility] Last Admin: 05/26/19 09:39 Dose: 80 mg Budesonide/Formoterol Fumarate (Symbicort 160/4.5mcg -) 2 puff IH BID [facility] Last Admin: 05/26/19 09:43 Dose: 2 puff Enoxaparin Sodium (Lovenox -) 40 mg SQ DAILY [facility] Last Admin: 05/26/19 09:40 Dose: 40 mg Guaifenesin (Robitussin -) 10 ml PO Q4H PRN PRN Reason: COUGH Last Admin: 05/24/19 09:07 Dose: 10 ml Hydrochlorothiazide (Hctz -) 25 mg PO DAILY [facility] Last Admin: 05/26/19 09:40 Dose: 25 mg Lisinopril (Prinivil) 5 mg PO DAILY [facility] Last Admin: 05/26/19 09:40 Dose: 5 mg Loratadine (Claritin -) 10 mg PO DAILY [facility] Last Admin: 05/26/19 09:40 Dose: 10 mg Methylprednisolone Sodium Succinate (Solu-Medrol -) 60 mg IVPUSH Q8H [facility] Last Admin: 05/26/19 06:56 Dose: 60 mg Montelukast Sodium (Singulair -) 10 mg PO HS [facility] Last Admin: 05/25/19 22:20 Dose: 10 mg Pantoprazole Sodium (Protonix -) 40 mg PO DAILY [facility] Last Admin: 05/26/19 09:40 Dose: 40 mg Constitutional: Yes: NAD Eyes: Yes: WNL HENT: Yes: WNL Neck: Yes: WNL Cardiovascular: Yes: Regular Rate and Rhythm, S1, S2 Respiratory: Yes: Scattered rhonchi and less expiratory Wheezes Gastrointestinal: Yes: Normal Bowel Sounds, Soft Extremities: Yes: WNL Edema: No Labs: Laboratory Results - last 24 hr 05/25/19 05/26/19 05/26/19 16:52 08:58 08:58 WBC 15.2 H RBC 4.42 Hgb 11.4 Hct 34.7 MCV 78.6 L MCH 25.9 MCHC 32.9 RDW 15.9 H Plt Count 376 MPV 7.4 L Sodium 135 L Potassium 4.3 Chloride 99 Carbon Dioxide 31 Anion Gap 5 L BUN 49.8 H Creatinine 1.7 H Est GFR (CKD-EPI)AfAm 39.22 Est GFR (CKD-EPI)NonAf 33.84 POC Glucometer 166 Random Glucose 118 H Calcium 9.0 Total Bilirubin 0.3 AST 16 ALT 32 Alkaline Phosphatase 54 Total Protein 6.2 L Albumin 2.9 L Problem List - Problems (1) Eosinophil count raised Code(s): D72.1 - EOSINOPHILIA (2) Asthma Code(s): J45.909 - UNSPECIFIED ASTHMA, UNCOMPLICATED Qualifiers: Asthma severity: severe Asthma persistence: unspecified Asthma complication type: with acute exacerbation Qualified Code(s): J45.901 - Unspecified asthma with (acute) exacerbation (3) Cough Code(s): R05 - COUGH (4) ASHD (arteriosclerotic heart disease) Code(s): I25.10 - ATHSCL HEART DISEASE OF [place] CORONARY ARTERY W/O ANG PCTRS (5) HTN (hypertension) Code(s): I10 - ESSENTIAL (PRIMARY) HYPERTENSION (6) Asthma exacerbation Code(s): J45.901 - UNSPECIFIED ASTHMA WITH (ACUTE) EXACERBATION (7) Sleep apnea Code(s): G47.30 - SLEEP APNEA, UNSPECIFIED Assessment/Plan IMP DYSPNEA ACUTE ASTHMA EXACERBATION COUGH ASHD S/P [place] HTN HLD CALI TOBACCO ABUSE EOSINOPHILIA JUAN ON CPAP PLAN IV STEROIDS INHALED BRONCHODILATORS O2 PEAK FLOW MONITOR CBC,EOSINOPHIL CT,LYTES,RENAL FUNCTION SERUM IGE LEVEL OUTPATIENT WHEN OFF STEROIDS OUTPATIENT PFTS CPAP AT NIGHT SMOKING CESSATION COUNSELED DR TORRES
--- NOTE | 2019-05-26 22:54 | PN ---
Progress Note (short form) - Note Progress Note: ID CONSULT DICTATED ACUTE EXACERBATION COPD LEUKOCYTOSIS TRACHEOBRONCHITIS AUGMENTIN 875MG PO BID X 7D
[2019-05-26] MEDS: MONTELUKAST NA 10 MG TABLET PO SCH (23:00)
[2019-05-27] MEDS: ALBUTEROL SO4 2.5/IPRATROPIUM 0.5 INH SOL 3 ML VIAL.NEB. NEB SCH ×4 (00:28→12:11)
[2019-05-27] MEDS: methylPREDNISolone NA SUCC 40 MG/1 ML VIAL IVPUSH SCH (06:28)
[2019-05-27 08:01] LABS: HEMATOCRIT 33.5 % (32.4-45.2); MCH 26.1 pg (25.7-33.7); MCHC 32.9 g/dl (32.0-36.0); MEAN CELL VOLUME 79.4 fl (80-96); MEAN PLT VOLUME 7.6 fl (7.5-11.1); PLATELET COUNT 371 K/MM3 (134-434); RBC 4.23 M/mm3 (3.60-5.2); RDW 15.9 % (11.6-15.6); WHITE BLOOD COUNT 16.1 K/mm3 (4.0-10.0)
[2019-05-27 08:44] LABS: ALBUMIN 2.7 g/dl (3.4-5.0); BILIRUBIN,TOTAL 0.4 mg/dL (0.2-1); BLOOD UREA NITROGEN 56.9 mg/dL (7-18); CREATININE 1.8 mg/dL (0.55-1.3); POTASSIUM 4.2 mmol/L (3.5-5.1); TOT PROT 5.7 g/dl (6.4-8.2)
[2019-05-27] MEDS: BUDESONIDE/FORMETEROL FUMARATE 160/4.5 mcg INHALER IH SCH (10:29)
[2019-05-27] MEDS: ENOXAPARIN NA (PORCINE) 40 MG/0.4 ML DISP.SYRIN SQ SCH (10:30)
[2019-05-27] MEDS: PANTOPRAZOLE 40 MG TABLET PO SCH (10:31)
[2019-05-27] MEDS: LISINOPRIL 5 MG TABLET (FP) PO SCH (10:31)
[2019-05-27] MEDS: ATORVASTATIN CA 80 MG TABLET (FP) PO SCH (10:31)
[2019-05-27] MEDS: amLODIPine BESYLATE 10 MG TABLET (FP) PO SCH (10:31)
[2019-05-27] MEDS: HYDROCHLOROTHIAZIDE 25 MG TABLET (FP) PO SCH (10:31)
[2019-05-27] MEDS: ASPIRIN COATED 81 MG TABLET.EC PO SCH (10:31)
[2019-05-27] MEDS: LORATADINE 10 MG TABLET PO SCH (10:31)
--- NOTE | 2019-05-27 11:25 | PN ---
Progress Note (short form) - Note Progress Note: Breathing feels better but feels very anxious and that she is retaining fluid. Less SOB. No CP. No acute events overnight. Intake & Output 05/24/19 05/25/19 05/26/19 05/27/19 23:59 23:59 23:59 23:59 Intake Total 151 104 6081 260 Balance 148 417 8412 260 Last Vital Signs Temp Pulse Resp BP Pulse Ox 99.0 F 83 20 129/82 97 05/27/19 08:44 05/27/19 08:44 05/27/19 08:44 05/27/19 08:44 05/27/19 08:44 Active Medications Albuterol Sulfate (Ventolin Hfa Inhaler -) 2 puff IH Q6H PRN PRN Reason: SHORT OF BREATH/WHEEZING Albuterol/Ipratropium (Duoneb -) 1 amp NEB RQ4H [facility] Last Admin: 05/27/19 07:50 Dose: 1 amp Amlodipine Besylate (Norvasc -) 10 mg PO DAILY [facility] Last Admin: 05/27/19 10:31 Dose: 10 mg Amoxicillin/Clavulanate Potassium (Augmentin - 875mg Tablet) 1 tab PO BID@0800, 1730 [facility] Aspirin (Ecotrin -) 81 mg PO DAILY [facility] Last Admin: 05/27/19 10:31 Dose: 81 mg Atorvastatin Calcium (Lipitor -) 80 mg PO DAILY [facility] Last Admin: 05/27/19 10:31 Dose: 80 mg Budesonide/Formoterol Fumarate (Symbicort 160/4.5mcg -) 2 puff IH BID [facility] Last Admin: 05/27/19 10:29 Dose: 2 puff Enoxaparin Sodium (Lovenox -) 40 mg SQ DAILY [facility] Last Admin: 05/27/19 10:30 Dose: 40 mg Guaifenesin (Robitussin -) 10 ml PO Q4H PRN PRN Reason: COUGH Last Admin: 05/24/19 09:07 Dose: 10 ml Hydrochlorothiazide (Hctz -) 25 mg PO DAILY [facility] Last Admin: 05/27/19 10:31 Dose: 25 mg Lisinopril (Prinivil) 5 mg PO DAILY [facility] Last Admin: 05/27/19 10:31 Dose: 5 mg Loratadine (Claritin -) 10 mg PO DAILY [facility] Last Admin: 05/27/19 10:31 Dose: 10 mg Montelukast Sodium (Singulair -) 10 mg PO HS [facility] Last Admin: 05/26/19 23:00 Dose: 10 mg Pantoprazole Sodium (Protonix -) 40 mg PO DAILY [facility] Last Admin: 05/27/19 10:31 Dose: 40 mg Constitutional: Yes: NAD Eyes: Yes: WNL HENT: Yes: WNL Neck: Yes: WNL Cardiovascular: Yes: Regular Rate and Rhythm, S1, S2 Respiratory: Yes: Scattered rhonchi, No expiratory Wheezes appreciated Gastrointestinal: Yes: Normal Bowel Sounds, Soft Extremities: Yes: WNL Edema: No Labs: Laboratory Results - last 24 hr 05/27/19 05/27/19 07:33 07:33 WBC 16.1 H RBC 4.23 Hgb 11.0 Hct 33.5 MCV 79.4 L MCH 26.1 MCHC 32.9 RDW 15.9 H Plt Count 371 MPV 7.6 Sodium 137 Potassium 4.2 Chloride 101 Carbon Dioxide 30 Anion Gap 6 L BUN 56.9 H Creatinine 1.8 H Est GFR (CKD-EPI)AfAm 36.60 Est GFR (CKD-EPI)NonAf 31.58 Random Glucose 178 H Calcium 9.0 Total Bilirubin 0.4 AST 19 ALT 37 Alkaline Phosphatase 59 Total Protein 5.7 L Albumin 2.7 L Problem List - Problems (1) Eosinophil count raised Code(s): D72.1 - EOSINOPHILIA (2) Asthma Code(s): J45.909 - UNSPECIFIED ASTHMA, UNCOMPLICATED Qualifiers: Asthma severity: severe Asthma persistence: unspecified Asthma complication type: with acute exacerbation Qualified Code(s): J45.901 - Unspecified asthma with (acute) exacerbation (3) Cough Code(s): R05 - COUGH (4) ASHD (arteriosclerotic heart disease) Code(s): I25.10 - ATHSCL HEART DISEASE OF [place] CORONARY ARTERY W/O ANG PCTRS (5) HTN (hypertension) Code(s): I10 - ESSENTIAL (PRIMARY) HYPERTENSION (6) Asthma exacerbation Code(s): J45.901 - UNSPECIFIED ASTHMA WITH (ACUTE) EXACERBATION (7) Sleep apnea Code(s): G47.30 - SLEEP APNEA, UNSPECIFIED Assessment/Plan IMP DYSPNEA ACUTE ASTHMA EXACERBATION COUGH ASHD S/P [place] HTN HLD CALI TOBACCO ABUSE EOSINOPHILIA JUAN ON CPAP PLAN CHANGE IV STEROIDS TO PREDNISONE INHALED BRONCHODILATORS O2 PEAK FLOW MONITOR CBC,EOSINOPHIL CT,LYTES,RENAL FUNCTION SERUM IGE LEVEL OUTPATIENT WHEN OFF STEROIDS OUTPATIENT PFTS CPAP AT NIGHT SMOKING CESSATION COUNSELED DR TORRES
[2019-05-27] MEDS ORDERED: predniSONE 20 MG TABLET (UD) PO SCH (11:30)
--- NOTE | 2019-05-27 15:35 | PN ---
Progress Note, Physician History of Present Illness: Pt seen and examined at bedside. She is awake and alert. She feels that her wheezing is improved. - Current Medication List Current Medications: Active Medications Albuterol Sulfate (Ventolin Hfa Inhaler -) 2 puff IH Q6H PRN PRN Reason: SHORT OF BREATH/WHEEZING Amlodipine Besylate (Norvasc -) 10 mg PO DAILY [facility] Last Admin: 05/27/19 10:31 Dose: 10 mg Amoxicillin/Clavulanate Potassium (Augmentin - 875mg Tablet) 1 tab PO BID@0800, 1730 [facility] Aspirin (Ecotrin -) 81 mg PO DAILY [facility] Last Admin: 05/27/19 10:31 Dose: 81 mg Atorvastatin Calcium (Lipitor -) 80 mg PO DAILY [facility] Last Admin: 05/27/19 10:31 Dose: 80 mg Budesonide/Formoterol Fumarate (Symbicort 160/4.5mcg -) 2 puff IH BID [facility] Last Admin: 05/27/19 10:29 Dose: 2 puff Enoxaparin Sodium (Lovenox -) 40 mg SQ DAILY [facility] Last Admin: 05/27/19 10:30 Dose: 40 mg Guaifenesin (Robitussin -) 10 ml PO Q4H PRN PRN Reason: COUGH Last Admin: 05/24/19 09:07 Dose: 10 ml Hydrochlorothiazide (Hctz -) 25 mg PO DAILY [facility] Last Admin: 05/27/19 10:31 Dose: 25 mg Lisinopril (Prinivil) 5 mg PO DAILY [facility] Last Admin: 05/27/19 10:31 Dose: 5 mg Loratadine (Claritin -) 10 mg PO DAILY [facility] Last Admin: 05/27/19 10:31 Dose: 10 mg Montelukast Sodium (Singulair -) 10 mg PO HS [facility] Last Admin: 05/26/19 23:00 Dose: 10 mg Pantoprazole Sodium (Protonix -) 40 mg PO DAILY [facility] Last Admin: 05/27/19 10:31 Dose: 40 mg Prednisone (Deltasone -) 40 mg PO DAILY [facility] Last Admin: 05/27/19 12:25 Dose: 40 mg - Objective Vital Signs: Vital Signs Temperature 99.0 F 05/27/19 08:44 Pulse Rate 83 05/27/19 08:44 Respiratory Rate 20 05/27/19 08:44 Blood Pressure 129/82 05/27/19 08:44 O2 Sat by Pulse Oximetry (%) 97 05/27/19 08:44 Constitutional: Yes: Calm Eyes: Yes: Conjunctiva Clear HENT: Yes: Atraumatic Cardiovascular: Yes: S1, S2 Respiratory: Yes: CTA Bilaterally Gastrointestinal: Yes: Normal Bowel Sounds, Soft, Abdomen, Obese Genitourinary: Yes: WNL Musculoskeletal: Yes: WNL Edema: No Neurological: Yes: Oriented Psychiatric: Yes: Oriented Labs: CBC, BMP 05/27/19 07:33 05/27/19 07:33 Problem List - Problems (1) CALI (acute kidney injury) Code(s): N17.9 - ACUTE KIDNEY FAILURE, UNSPECIFIED (2) Asthma Code(s): J45.909 - UNSPECIFIED ASTHMA, UNCOMPLICATED Qualifiers: Asthma severity: severe Asthma persistence: unspecified Asthma complication type: with acute exacerbation Qualified Code(s): J45.901 - Unspecified asthma with (acute) exacerbation Assessment/Plan Current Medications Generic Name Dose Route Start Last Admin Trade Name Freq PRN Reason Stop Dose Admin Albuterol Sulfate 2 puff 05/21/19 16:16 Ventolin Hfa Inhaler - IH Q6H PRN SHORT OF BREATH/WHEEZING Amlodipine Besylate 10 mg 05/23/19 10:00 05/27/19 10:31 Norvasc - PO 10 mg DAILY [facility] Administration Amoxicillin/Clavulanate Potassium 1 tab 05/27/19 17:30 Augmentin - 875mg Tablet PO BID@0800,1730 [facility] Aspirin 81 mg 05/23/19 10:00 05/27/19 10:31 Ecotrin - PO 81 mg DAILY [facility] Administration Atorvastatin Calcium 80 mg 05/23/19 10:00 05/27/19 10:31 Lipitor - PO 80 mg DAILY [facility] Administration Budesonide/Formoterol Fumarate 2 puff 05/23/19 22:00 05/27/19 10:29 Symbicort 160/4.5mcg - IH 2 puff BID [facility] Administration Enoxaparin Sodium 40 mg 05/22/19 10:00 05/27/19 10:30 Lovenox - SQ 40 mg DAILY [facility] Administration Guaifenesin 10 ml 05/23/19 15:26 05/24/19 09:07 Robitussin - PO 10 ml Q4H PRN Administration COUGH Hydrochlorothiazide 25 mg 05/23/19 10:00 05/27/19 10:31 Hctz - PO 25 mg DAILY [facility] Administration Lisinopril 5 mg 05/23/19 10:00 05/27/19 10:31 Prinivil PO 5 mg DAILY [facility] Administration Loratadine 10 mg 05/22/19 10:00 05/27/19 10:31 Claritin - PO 10 mg DAILY [facility] Administration Montelukast Sodium 10 mg 05/22/19 22:00 05/26/19 23:00 Singulair - PO 10 mg HS [facility] Administration Pantoprazole Sodium 40 mg 05/23/19 10:00 05/27/19 10:31 Protonix - PO 40 mg DAILY [facility] Administration Prednisone 40 mg 05/27/19 11:30 05/27/19 12:25 Deltasone - PO 40 mg DAILY [facility] Administration Impression 1. CKD 2. htn 3. DM 4. asthma 5. dyspnea 6. bipolar Plan - cont to monitor renal function - jumpbasting facing baster not far from baseline - steroids with taper as tolerated - will need outpt renal workup - 2 gram sodium diet - avoid nsaids
[2019-05-27 15:36] VITALS: BP 119/68; PULSE 81; TEMP 97.6
--- NOTE | 2019-05-27 16:22 | DS ---
Physical Examination Vital Signs: Vital Signs Temperature 97.6 F 05/27/19 14:00 Pulse Rate 81 05/27/19 14:00 Respiratory Rate 20 05/27/19 14:00 Blood Pressure 119/68 05/27/19 14:00 O2 Sat by Pulse Oximetry (%) 97 05/27/19 08:44 Constitutional: Yes: No Distress HENT: Yes: Atraumatic, Normocephalic Neck: Yes: Supple Cardiovascular: Yes: Regular Rate and Rhythm Respiratory: Yes: Regular, CTA Bilaterally Gastrointestinal: Yes: Normal Bowel Sounds, Soft Musculoskeletal: Yes: WNL Extremities: Yes: WNL Integumentary: Yes: WNL Neurological: Yes: Alert, Oriented Psychiatric: Yes: Alert, Oriented Labs: CBC, BMP 05/27/19 07:33 05/27/19 07:33 Discharge Summary Problems reviewed: Yes Reason For Visit: RECENT MYOCARDIAL INFARCTION Current Active Problems CALI (acute kidney injury) (Acute) ASHD (arteriosclerotic heart disease) (Acute) Acute respiratory failure (Acute) Asthma (Acute) Asthma exacerbation (Acute) Chest pain (Acute) Cough (Acute) Eosinophil count raised (Acute) HLD (hyperlipidemia) (Acute) HTN (hypertension) (Acute) Obesity (BMI 30-39.9) (Acute) Sleep apnea (Acute) Hospital Course: (1) Asthma exacerbation Assessment/Plan: pulmonary following IV steroids changed to po add ppi neb tx Code(s): J45.901 - UNSPECIFIED ASTHMA WITH (ACUTE) EXACERBATION (2) Obesity (BMI 30-39.9) Assessment/Plan: property handler referral Code(s): E66.9 - OBESITY, UNSPECIFIED (3) HLD (hyperlipidemia) Assessment/Plan: total chol 162 continue atorvastatin Code(s): E78.5 - HYPERLIPIDEMIA, UNSPECIFIED (4) CALI (acute kidney injury) Assessment/Plan: monitor bun/creat nephro eval appreciated will need outpatient workup Code(s): N17.9 - ACUTE KIDNEY FAILURE, UNSPECIFIED (5) Acute respiratory failure Assessment/Plan: does not have home oxygen monitor sats maintain >92% Code(s): J96.00 - ACUTE RESPIRATORY FAILURE, UNSP W HYPOXIA OR HYPERCAPNIA Qualifiers: Respiratory failure complication: unspecified whether with hypoxia or hypercapnia Qualified Code(s): J96.00 - Acute respiratory failure, unspecified whether with hypoxia or hypercapnia (6) HTN (hypertension) Assessment/Plan: restart home meds Code(s): I10 - ESSENTIAL (PRIMARY) HYPERTENSION Condition: Stable - Instructions Referrals: Kylie Michel NP [Primary Care Provider] - May Luo MD [Staff Physician] - Disposition: HOME - Home Medications Comprehensive Discharge Medication List: Ambulatory Orders Albuterol 2.5/Ipratropium 0.5 1 neb PO QID 05/22/19 Amlodipine Besylate [Norvasc -] 10 mg PO DAILY 05/22/19 Aspirin [Aspirin EC] 81 mg PO DAILY 05/22/19 Atorvastatin Ca [Lipitor] 80 mg PO DAILY 05/22/19 Lisinopril 5 mg PO DAILY 05/22/19 Albuterol 2.5/Ipratropium 0.5 [Duoneb -] 1 amp NEB RQ4H amp 05/27/19 Albuterol Sulfate Inhaler - [Ventolin HFA Inhaler -] 2 puff IH Q6H PRN inhaler 05/27/19 Amox-Tr/K Cl [Augmentin 875-125mg Tablet -] 1 tab PO BID@0800,1730 #14 tablet Budesonide/Formeterol Fumarate [SYMBICORT 160/4.5mcg -] 2 puff IH BID inhaler 05/27/19 Hydrochlorothiazide [Hctz -] 25 mg PO DAILY tablet 05/27/19 Loratadine [Claritin -] 10 mg PO DAILY tablet 05/27/19 Montelukast Na [Singulair -] 10 mg PO HS tablet 05/27/19 Pantoprazole Sodium [Protonix -] 40 mg PO DAILY tablet.ec 05/27/19 predniSONE [Deltasone -] 40 mg PO DAILY #12 tablet 05/27/19
[2019-05-27] MEDS ORDERED: AMOX TR/POT CLAV 875MG/125MG TABLETS (FP) PO SCH (17:30)
--- NOTE | 2019-05-27 17:52 | CONS ---
INFECTIOUS DISEASE CONSULTATION DATE OF CONSULTATION: DATE OF DICTATION: 05/27/2019 HISTORY: The patient is a 53-year-old female who was evaluated for positive sputum culture. She was admitted to the hospital on May 21, 2019, with complaints of headache, arthralgias, myalgias, chest, abdominal, and abdominal pain, nausea, and vomiting. She was admitted to the hospital where she was treated for an acute exacerbation of COPD. Now patient reports that her has been ill with respiratory tract syndrome. Positive history of tobacco use stopping approximately 4 months ago. She has had no recent hospitalizations. She was recently hospitalized for an acute myocardial infarction at [facility]. She denies any recent travel or pet exposure. PAST MEDICAL HISTORY: Positive for coronary artery disease, myocardial infarction, COPD, asthma, hypertension, hyperlipidemia, bipolar disorder, obstructive sleep apnea, morbid obesity. ALLERGIES: PROZAC, HALDOL, ZOLOFT. SOCIAL HISTORY: Resides in the community with her significant other. Positive for history of tobacco use. Denies alcohol abuse or illicit drug use. LABORATORY DATA: White count 15.2, hematocrit 34.7, platelets 376, creatinine 1.7. Urinalysis, 3 white cells. Influenza swab negative. CAT scan of the chest shows no acute infiltrate. PHYSICAL EXAMINATION: General: She is awake and alert in bed in no acute distress. Breathing is nonlabored on nasal cannula O2. Vital Signs: Temperature 99.0, blood pressure 129/82, pulse 83 regular, respirations 20 per minute. HEENT: Sclerae anicteric. Heart: Sounds S1, S2. Lungs: Clear. Decreased breath sounds bilaterally. No rales, rhonchi, or wheezing. Abdomen: Obese, soft, nontender. Extremities: 1+ edema. ASSESSMENT: 1. Acute exacerbation chronic obstructive pulmonary disease. 2. Tracheal bronchitis. Positive sputum culture for Klebsiella. 3. Elevated white blood cell count likely steroid induced. PLAN: Advised treatment for tracheal bronchitis with Augmentin 875 mg p.o. b.i.d. for 7 days. Continue inhaled bronchodilators, corticosteroids. Thank you for the kind referral. HORTENCIA CHERRY M.D. [id number]
== END 2019-05-27 18:13 | disposition home or self-care (01) | DRG 140 ==
LOC: JER 14:57 → JERBED 17:33 → J5S 05-22 00:51
PROVIDERS: ATTEND Family Medicine
DX: J44.1 Chronic obstructive pulmonary disease with (acute) exacerbation (principal); I10 Essential (primary) hypertension; E78.5 Hyperlipidemia, unspecified; L30.9 Dermatitis, unspecified; J45.909 Unspecified asthma, uncomplicated; E66.9 Obesity, unspecified; Z68.36 Body mass index [BMI] 36.0-36.9, adult; N17.9 Acute kidney failure, unspecified; E11.9 Type 2 diabetes mellitus without complications; F31.9 Bipolar disorder, unspecified; J96.00 Acute respiratory failure, unspecified whether with hypoxia or hypercapnia; G47.33 Obstructive sleep apnea (adult) (pediatric); F17.210 Nicotine dependence, cigarettes, uncomplicated; D72.1 Eosinophilia; I25.10 Atherosclerotic heart disease of native coronary artery without angina pectoris; I25.2 Old myocardial infarction; R07.89 Other chest pain; I12.9 Hypertensive chronic kidney disease with stage 1 through stage 4 chronic kidney disease, or unspecified chronic kidney disease; N18.9 Chronic kidney disease, unspecified
CPT/HCPCS: 36415; 36600; 71046-TC-FY; 71250-TC; 76775-TC; 80048; 80053; 80061; 80307; 81003; 82375; 82550; 82570; 82803; 82962; 83036; 83050; 83721; 84156; 84443; 84484; 85025; 85027; 87070; 87186; 87205; 87804; 87807; 87899; 90732; 93005; 93010; 93306-TC; 94150; 94640; 94660; 99285-25; G0009

== ENCOUNTER 2024-06-25 09:42 | Observation (INO) | payer OTHER ==
[2024-06-25] MEDS ORDERED: ALBUTEROL SO4 2.5/IPRATROPIUM 0.5 INH SOL 3 ML VIAL.NEB. NEB ONE (11:43)
[2024-06-25] MEDS ORDERED: ACETAMINOPHEN INJECTION 100 ML ONE (11:43)
[2024-06-25] MEDS ORDERED: ONDANSETRON 4 MG/2 ML VIAL ONE (11:43)
[2024-06-25] MEDS ORDERED: FAMOTIDINE 20 MG/50 ML IVPB 20 MG/50 ML MG IVPB ONE (11:44)
[2024-06-25] MEDS: ONDANSETRON 4 MG/2 ML VIAL IVPB ONE (11:45)
[2024-06-25] MEDS: ACETAMINOPHEN 1000 MG/100 ML BAG IVPB ONE (11:45)
[2024-06-25] MEDS: ALBUTEROL SO4 2.5/IPRATROPIUM 0.5 INH SOL 3 ML VIAL.NEB. NEB ONE (11:45)
[2024-06-25] MEDS: FAMOTIDINE 20 MG/50 ML IVPB 20 MG/50 ML MG IVPB ONE (11:45)
[2024-06-25 12:29] LABS: VENOUS BASE EXCESS -4.8 mmol/L (-2-2); VENOUS O2 SATURATION 38.8 % (70-80); VENOUS PCO2 47.7 mmHg (38-52); VENOUS PH 7.28 (7.310-7.410)
[2024-06-25 12:36] LABS: ABSOLUTE IMMATURE GRANULOCYTES 0.01 x10^3/uL (0.0-0.031); BASOPHILS # 0.05 x10^3/uL (0.01-0.08); EOSINOPHIL % 3.8 % (0.7-5.8); EOSINOPHILS # 0.18 x10^3/uL (0.04-0.36); HEMATOCRIT 26.2 % (34.1-44.9); HEMOGLOBIN 8.2 g/dL (11.2-15.7); MCHC 31.3 g/dl (32.2-35.5); MEAN CELL VOLUME 80.1 fl (79.4-94.8); MEAN PLT VOLUME 9.7 fl (9.4-12.3); MONOCYTE % 8.5 % (4.7-12.5); PLATELET COUNT 401 x10^3/uL (182-369); RDW 14.6 % (12.3-16.6)
[2024-06-25 12:43] LABS: POTASSIUM 5.8 mmol/L (3.5-5.1)
[2024-06-25 12:45] LABS: BLOOD UREA NITROGEN 55.4 mg/dL (7-18); CALCIUM 8.7 mg/dL (8.5-10.1)
[2024-06-25 12:46] LABS: ALBUMIN 2.7 g/dl (3.4-5.0)
[2024-06-25 12:49] LABS: CREATININE 4.4 mg/dL (0.55-1.3)
[2024-06-25 12:50] LABS: BILIRUBIN,TOTAL 0.4 mg/dL (0.2-1); TOT PROT 6.8 g/dl (6.4-8.2)
[2024-06-25 13:56] LABS: POTASSIUM 4.7 mmol/L (3.5-5.1)
[2024-06-25 13:58] LABS: BLOOD UREA NITROGEN 52.2 mg/dL (7-18); CALCIUM 8.4 mg/dL (8.5-10.1)
[2024-06-25 14:01] LABS: CREATININE 4.3 mg/dL (0.55-1.3)
[2024-06-25] MEDS: ALBUTEROL SO4 2.5/IPRATROPIUM 0.5 INH SOL 3 ML VIAL.NEB. NEB SCH (14:40)
[2024-06-25] MEDS: INSULIN ASPART SLIDING SCALE (NOVOLOG) 1 VIAL SQ SCH (17:43)
[2024-06-25] MEDS: HEPARIN NA (PORCINE) 5,000 UNITS/ML 1ML VIAL SQ SCH (21:21)
[2024-06-26] MEDS: HYDROCHLOROTHIAZIDE 25 MG TABLET (FP) PO ONE (04:22)
[2024-06-26 07:45] LABS: HEMATOCRIT 24.6 % (34.1-44.9); HEMOGLOBIN 7.8 g/dL (11.2-15.7); MCHC 31.7 g/dl (32.2-35.5); MEAN PLT VOLUME 9.7 fl (9.4-12.3); PLATELET COUNT 361 x10^3/uL (182-369); RDW 14.5 % (12.3-16.6)
[2024-06-26 08:07] LABS: CHLORIDE 110 mmol/L (98-107); POTASSIUM 5.3 mmol/L (3.5-5.1); SODIUM 138 mmol/L (136-145)
[2024-06-26] MEDS: hydrALAZINE HCL 25 MG TABLET (FP) PO SCH (08:12)
[2024-06-26 08:25] LABS: CALCIUM 8.3 mg/dL (8.5-10.1)
[2024-06-26 08:26] LABS: ALBUMIN 2.5 g/dl (3.4-5.0); ANION GAP 6 mmol/L (4-13); BLOOD UREA NITROGEN 50.3 mg/dL (7-18); CO2 22 mmol/L (21-32); GLUCOSE,RANDOM 80 mg/dL (74-106)
[2024-06-26 08:27] LABS: SGOT/AST 8 U/L (15-37); SGPT/ALT < 6 U/L (13-61)
[2024-06-26 08:28] LABS: CREATININE 4.3 mg/dL (0.55-1.3); PHOSPHOROUS 5.5 mg/dL (2.5-4.9)
[2024-06-26 08:29] LABS: BILIRUBIN,TOTAL 0.4 mg/dL (0.2-1); TOT PROT 5.9 g/dl (6.4-8.2)
[2024-06-26 08:30] LABS: ALK PHOS 59 U/L (45-117)
[2024-06-26] MEDS ORDERED: amLODIPine BESYLATE 5 MG TABLET (FP) PO SCH (10:00)
[2024-06-26] MEDS: amLODIPine BESYLATE 10 MG TABLET (FP) PO SCH (10:52)
[2024-06-26 12:06] LABS: EPI CELLS 19 /uL (0-25.1); HYALINE CASTS 0 /uL (0-3.1); URINE APPEARANCE CLEAR; URINE BACTERIA 16 /uL (0-1359); URINE BILIRUBIN NEGATIVE (NEGATIVE); URINE COLOR YELLOW; URINE GLUCOSE (UA) NEGATIVE (NEGATIVE); URINE KETONE NEGATIVE (NEGATIVE); URINE LEUK ESTERASE TRACE (NEGATIVE); URINE NITRITE NEGATIVE (NEGATIVE); URINE PROTEIN 3+ (NEGATIVE); URINE RBC 70 /uL (0-23.9); URINE UROBILINOGEN 0.2 mg/dL (0.2-1.0); URINE WBC 109 /uL (0-25.8)
[2024-06-26] MEDS: SODIUM ZIRCONIUM CYCLOSILICATE (LOKELMA) 5 GM PACKET PO SCH (13:50)
[2024-06-26] MEDS: ACETAMINOPHEN 1000 MG/100 ML BAG IVPB PRN (21:11)
[2024-06-27 06:55] LABS: POTASSIUM 4.7 mmol/L (3.5-5.1)
[2024-06-27 06:57] LABS: BLOOD UREA NITROGEN 53.4 mg/dL (7-18); CALCIUM 8.7 mg/dL (8.5-10.1)
[2024-06-27 06:58] LABS: ALBUMIN 2.6 g/dl (3.4-5.0)
[2024-06-27 07:01] LABS: CREATININE 4.4 mg/dL (0.55-1.3); PHOSPHOROUS 4.7 mg/dL (2.5-4.9)
[2024-06-27 07:02] LABS: BILIRUBIN,TOTAL 0.3 mg/dL (0.2-1); TOT PROT 6.2 g/dl (6.4-8.2)
[2024-06-27 07:54] LABS: HEMOGLOBIN 8.2 g/dL (11.2-15.7); MCHC 34.2 g/dl (32.2-35.5); MEAN CELL VOLUME 84.8 fl (79.4-94.8); PLATELET COUNT 402 x10^3/uL (182-369); RDW 15.1 % (12.3-16.6)
[2024-06-27] MEDS ORDERED: ACETAMINOPHEN/CAFFEINE/BUTALBITAL 1 TAB PO PRN (10:54)
[2024-06-27] MEDS: ACETAMINOPHEN/CAFFEINE/BUTALBITAL 1 TAB PO ONE (12:01)
[2024-06-27] MEDS: MAGNESIUM 1GM/D5W 100ML - 100 ML IVPB IVPB ONE (12:03)
[2024-06-27 13:48] VITALS: BMI 27.4
[2024-06-27] MEDS: hydrALAZINE HCL 50 MG TABLET (FP) PO SCH (14:25)
[2024-06-27 21:07] LABS: ANTIGLOMERULAR BASEMENT MEN.AB <0.2 units (0.0-0.9)
[2024-06-28] MEDS: ACETAMINOPHEN/CAFFEINE/BUTALBITAL 1 TAB PO PRN (00:38)
[2024-06-28 06:21] VITALS: RESP 20
[2024-06-28 06:46] LABS: HEMATOCRIT 27.6 % (34.1-44.9); HEMOGLOBIN 8.6 g/dL (11.2-15.7); MCHC 31.2 g/dl (32.2-35.5); MEAN CELL VOLUME 79.5 fl (79.4-94.8); MEAN PLT VOLUME 9.4 fl (9.4-12.3); PLATELET COUNT 466 x10^3/uL (182-369); RDW 14.7 % (12.3-16.6)
[2024-06-28 06:51] LABS: CHLORIDE 107 mmol/L (98-107); POTASSIUM 5.3 mmol/L (3.5-5.1); SODIUM 136 mmol/L (136-145)
[2024-06-28 06:57] LABS: ALBUMIN 2.7 g/dl (3.4-5.0); ANION GAP 5 mmol/L (4-13); BLOOD UREA NITROGEN 53.8 mg/dL (7-18); CALCIUM 9.2 mg/dL (8.5-10.1); CO2 24 mmol/L (21-32)
[2024-06-28 06:58] LABS: GLUCOSE,RANDOM 87 mg/dL (74-106); MAGNESIUM 2.6 mg/dL (1.8-2.4)
[2024-06-28 07:00] LABS: CREATININE 4.4 mg/dL (0.55-1.3); SGOT/AST 8 U/L (15-37); SGPT/ALT < 6 U/L (13-61)
[2024-06-28 07:01] LABS: PHOSPHOROUS 4.9 mg/dL (2.5-4.9)
[2024-06-28 07:02] LABS: BILIRUBIN,TOTAL 0.3 mg/dL (0.2-1); TOT PROT 6.1 g/dl (6.4-8.2)
[2024-06-28 07:03] LABS: ALK PHOS 62 U/L (45-117)
[2024-06-28] MEDS: ONDANSETRON 4 MG/2 ML VIAL IVPUSH ONE (09:07)
[2024-06-28] MEDS: NIFEdipine E.R 60 MG TABLET PO SCH (09:07)
[2024-06-28] MEDS: SODIUM ZIRCONIUM CYCLOSILICATE (LOKELMA) 5 GM PACKET PO ONE (09:07)
[2024-06-28 10:28] VITALS: BP 152/86; PULSE 75; TEMP 97.7
[2024-06-28] MEDS: ACETAMINOPHEN/CAFFEINE/BUTALBITAL 1 TAB PO SCH (11:45)
[2024-06-28] MEDS ORDERED: SODIUM ZIRCONIUM CYCLOSILICATE (LOKELMA) 5 GM PACKET PO ONE (13:14)
[2024-07-01 13:07] LABS: C-ANCA <1:20 titer (Neg:<1:20)
== END 2024-06-28 12:51 | disposition home or self-care (01) ==
LOC: JER 09:42 → JERBED 13:43 → J4W 15:26
PROVIDERS: ADMIT Internal Medicine; ATTEND Internal Medicine
PROC: 3E033NZ Introduction of Analgesics, Hypnotics, Sedatives into Peripheral Vein, Percutaneous Approach (ICD-10-PCS; principal; 2024-06-25)
PROC: 3E0F7GC Introduction of Other Therapeutic Substance into Respiratory Tract, Via Natural or Artificial Opening (ICD-10-PCS; 2024-06-25)
PROC: 3E033GC Introduction of Other Therapeutic Substance into Peripheral Vein, Percutaneous Approach (ICD-10-PCS; 2024-06-25)
PROC: 3E023GC Introduction of Other Therapeutic Substance into Muscle, Percutaneous Approach (ICD-10-PCS; 2024-06-25)
DX: I16.0 Hypertensive urgency (principal); I12.9 Hypertensive chronic kidney disease with stage 1 through stage 4 chronic kidney disease, or unspecified chronic kidney disease; J44.9 Chronic obstructive pulmonary disease, unspecified; E11.22 Type 2 diabetes mellitus with diabetic chronic kidney disease; N18.9 Chronic kidney disease, unspecified; I50.33 Acute on chronic diastolic (congestive) heart failure; N17.9 Acute kidney failure, unspecified; I71.9 Aortic aneurysm of unspecified site, without rupture; E87.5 Hyperkalemia; D50.9 Iron deficiency anemia, unspecified
CPT/HCPCS: 0241U-QW; 36415; 70450-TC; 71045-TC-FY; 71250-TC; 76775-TC; 76856-TC; 80048; 80053; 81003; 82570; 82728; 82803; 82962; 83516; 83520; 83540; 83550; 83735; 83880; 84100; 84155; 84156; 84165; 84443; 84484; 85025; 85027; 86038; 86160; 86225; 86256; 93005; 93010; 93306-TC; 94640; 96365; 96372; 96375; 96376; 99285-25; G0378; J0131; J1644

== ENCOUNTER → 2024-12-31 | Day surgery (SDC) | payer OTHER ==
[2024-12-26 12:57] VITALS: BMI 24.8
[~2024-12-31] MED LIST: ACETAMINOPHEN INJECTION 100 ML ONE; DEXTROSE 50%-WATER 25 GM/50 ML DISP.SYRIN ONE; HEPARIN NA (PORCINE) 5,000 UNITS/ML 1ML VIAL ONE; LIDOCAINE HCL 1%, 10 MG/ML (20ML VIAL) ONE; MIDAZOLAM HCL 2 MG/2 ML SINGLE DOSE VIAL ONE; PAPAVERINE HCL 30 MG/1 ML 10 ML VIAL NR ONE; PROPOFOL 20 ML ONE; SUCCINYLCHOLINE CHLORIDE 200 MG/10 ML SYRINGE ONE
[2024-12-31] MEDS: DEXTROSE 50%-WATER 25 GM/50 ML DISP.SYRIN IVPUSH ONE (11:40)
[2024-12-31] MEDS: LIDOCAINE HCL 1%, 10 MG/ML (20ML VIAL) NR ONE ×2 (13:46)
[2024-12-31] MEDS: POVIDONE-IODINE OINTMENT 10% - 28.4 GM TUBE TP ONE (14:45)
[2024-12-31] MEDS: ACETAMINOPHEN 1000 MG/100 ML BAG IVPB ONE (15:05)
[2024-12-31 16:33] VITALS: BP 140/85; PULSE 68; RESP 20; TEMP 97.9
== END | disposition home or self-care (01) ==
LOC: JASU-SURG 06:12
PROVIDERS: ATTEND Surgery
PROC: 031A0ZF Bypass Left Ulnar Artery to Lower Arm Vein, Open Approach (ICD-10-PCS; principal; 2024-12-31 13:00)
DX: I12.0 Hypertensive chronic kidney disease with stage 5 chronic kidney disease or end stage renal disease (principal); E11.22 Type 2 diabetes mellitus with diabetic chronic kidney disease; N18.6 End stage renal disease
CPT/HCPCS: 82962; 94760